=== PATIENT | female | born 1960 | race Caucasian/White ===

== ENCOUNTER 2017-07-16 13:14 | Inpatient (IN) | payer MEDICAID ==
[~2017-07-16] VITALS: Ht 165.1 cm; Wt 161.0 kg
--- NOTE | ~2017-07-16 | WRIGHTHP ---
[place], [place] PATIENT HISTORY AND PHYSICAL EXAM [facility]: [id number] UNIT #: [id number] ROOM: 317 DOCTOR: JAZMINE LEBRON MD BIRTHDATE: [birth year] DOS: 07/17/2017 INITIAL PSYCHIATRIC EVALUATION CHIEF COMPLAINT: "I am just so depressed, I was going to kill myself." HISTORY OF PRESENT ILLNESS: This is a 57-year-old white female with a lengthy medical history who resides at [facility] in the [facility]. The patient has voiced increasing depression over the last several weeks, culminating with a recent increase in suicidal ideation with a plan to wrap her oxygen cord around her neck until she suffocates herself. The patient has had at least 3 previous suicide attempts each resulting in hospitalization. 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 The patient also reports to having fleeting visual hallucinations and sees a dark figure at times in the rodríguez. The patient reports multiple psychiatric admissions to [place] and also 2 hospitals in [place] and elsewhere. She is admitted now to rule out any organic factors to attempt to stabilize on medication, to engage in individual and lowe milieu activity and then determine the least restrictive environment to which she can be discharged. PAST MEDICAL HISTORY: Remarkable for coronary artery disease, congestive heart failure, gastritis, GERD, hyperlipidemia, hypertension, hypothyroidism, seizure disorder, and a history of peptic ulcer disease. SOCIAL HISTORY: The patient is a former smoker and she had smoked approximately 1 pack per day for about 4-1/2 years. She does not use illicit drugs or drink alcohol. MENTAL STATUS: Upon admission, the patient is alert and oriented times 3. Mood does seem to be rather depressed with anxious overtones. She endorses significant neurovegetative symptoms with poor sleep and appetite, anergia, anhedonia, hopeless, helpless feelings, crying spells and positive suicidal thoughts with a plan. The patient does not have any overt hypomania or shirlye. There is no overt psychosis noted. Memory for the most part is intact. DIAGNOSIS: Major depression, recurrent, severe, rule out bipolar type 2. PLAN: I will go ahead and discontinue her Effexor in lieu of Pristiq 50 mg in the morning. I will discontinue her Klonopin to simplify her medication regimen. Her vitamin D level upon admission is low at 10.4, so I will augment with vitamin D replacement 50,000 international units weekly. I will obtain a PT and OT evaluation to determine what if any intervention she requires and also consult Dr. Rick regarding competency as she currently has a power of trust and estates attorney in place who has been making informed decisions for the patient and I am uncertain at this point, if that is the correct process at this time. We will engage her in individual and lowe milieu activity, returning then to the least restrictive environment when stable. [place], [place] PATIENT HISTORY AND PHYSICAL EXAM NAME: HU[facility] MILLER [facility] [id number] UNIT #: [id number] ROOM: [facility] DOCTOR: JAZMINE LEBRON MD BIRTHDATE: [birth year] JAZMINE LEBRON MD CM:HISPHYS:PATIENT HISTORY AND PHYSICAL EXAMINATION [id number] JAZMINE LEBRON MD 07/17/17 1205 interface
--- NOTE | ~2017-07-16 | PR ---
[place], [place] PROGRESS NOTE NAME: HUMA MILLER UNIT #: [id number] ROOM: 317 DOCTOR: JAZMINE LEBRON MD BIRTHDATE: [birth year] DOS: 07/20/2017 CHIEF COMPLAINT: "I am still hurting, but I think I feel a little better." SUMMARY OF THE VISIT: The patient was interviewed in the dining area. She reported to me that she is in a great deal of pain, especially her knees. Mood clarke, she does feel that the current medication changes have helped a little bit, but she still remains depressed and overwhelmed. She is tolerating the current medication regimen well and notes no side effects. MENTAL STATUS: She is alert and oriented to person, place and time. Mood does seem to be fairly euthymic and improving. Affect is also more appropriate. There is no shirley or hypomania. There are no gross psychosis. Short, intermediate, and long-term memory are intact. PLAN: I will increase Pristiq from 50 to 100 mg in the morning, hoping to improve her mood. I will also increase Latuda from 40 to 60 mg at bedtime to further stabilize her mood and augment the effectiveness of the antidepressant. I will order Zostrix high potency cream three times daily to see if we can impact positively on pain control without using further opiate analgesia. Engage in individual and lowe milieu activity, returning to the least restrictive environment when psychiatrically stable. JAZMINE LEBRON MD CM:PNTRANS [id number] JAZMINE LEBRON MD 07/20/17 1013 interface
--- NOTE | ~2017-07-16 | PR ---
[place], [place] PROGRESS NOTE NAME: [id number] UNIT #: [id number] ROOM: 317 DOCTOR: ALFREDO MCWILLIAMS DO BIRTHDATE: [birth year] DOS: 07/21/2017 CHIEF COMPLAINT: "Please do not give me that cream with pepper, it goncalves." SUMMARY OF VISIT: The patient is a 57-year-old female who was admitted to the [facility] from the [facility] in [place], [place], status post suicidal ideation with plan, currently on hospital day #5 with improved mood. Today, the patient was interviewed in the quiet room. She was engaged in therapy at that time. She reported having a burning reaction to the Zostrix cream. We informed her that we would discontinue this cream. The patient did not wear her BiPAP last night per nursing. The patient was complaining of burning leg pain last night. She did not voice this concern this morning. The patient was informed with discharge plan for disposition tomorrow. The patient was in agreement with plan. The patient is currently being observed for fall precautions, no hallucinations were noted. No thoughts of self-harm were verbalized by patient. MENTAL STATUS EXAMINATION: The patient is alert and oriented to person, place and time. Mood does appear to be trending towards euthymia. Affect is more appropriate. There are no signs of thoughts of self-harm or harm towards others. The patient's short-term memory appears to be intact. There are no signs of shirley or hypomania. PLAN: 1. We have discontinued the Zostrix cream secondary to rash and burning to the application site. 2. No other changes to be made to the psychotropic regimen at this time as the patient is tolerating regimen well. 3. The patient has been started with fosfomycin for urinary tract infection. This is being managed by the internal medicine hospitalist team. 4. Disposition, the patient to be discharged tomorrow back to [facility]. We will continue to engage the patient in individual and lowe milieu activity, returning to the least restrictive environment when psychiatrically stable. Alfredo Mcwilliams DO [place], [place] PROGRESS NOTE NAME: HUMA MILLER UNIT #: [id number] ROOM: 317 DOCTOR: ALFREDO MCWILLIAMS DO BIRTHDATE: [birth year] JAZMINE LEBRON MD CM:BENNIE [id number] ALFREDO MCWILLIAMS DO 07/21/17 1345 interface
--- NOTE | ~2017-07-16 | DS ---
[place], [place] DISCHARGE SUMMARY [id number] UNIT #: [id number] ROOM: 317 DOCTOR: JAZMINE LEBRON MD BIRTHDATE: [birth year] DOS: 07/22/2017 CHIEF COMPLAINT: "I am just so depressed, I was going to kill myself." HISTORY OF PRESENT ILLNESS: This is a 57-year-old white female with a lengthy medical and psychiatric history. She resides at [facility] in [place], [place]. The patient has voiced increasing depression over the last several weeks prior to this admission, culminating in a recent voicing of suicidal ideation with a plan to wrap her oxygen cord around her neck until she suffocates herself. The patient has had at least 3 previous suicide attempts, resulting in hospitalizations. She reports that she has felt herself getting deeper into the depression over the last several weeks during which time, she has experienced poor sleep with difficulty falling asleep, sleep continuity disturbance, hide salter awakening, anergia, anhedonia, hopeless, helpless feelings, crying spells, and inability to cope. She also reports fleeting visual hallucinations and often sees a dark figure at times in the rodríguez. She reports multiple psychiatric admissions to [facility] and 2 hospitals in the [facility]. She is admitted now to the [facility] to rule out possible organic factors, to engage in individual and lowe milieu activities and to stabilize on medication, returning to the least restrictive environment when psychiatrically stable. PAST MEDICAL HISTORY: Remarkable for coronary artery disease, congestive heart failure, gastritis, GERD, hyperlipidemia, hypertension, hypothyroidism, seizure disorder, and peptic ulcer disease. SOCIAL HISTORY: She is a former cigarette smoker, smoking 1 pack per day for about 4-1/2 years. She does not drink alcohol nor does she use any illicit drugs. STRENGTHS: She has good verbal skills, a very good sense of humor and is very engaging. SUMMARY OF HOSPITAL COURSE: The patient was admitted to the unit where her Effexor was discontinued in lieu of Pristiq 50 mg in the morning. Pristiq was utilized as a drug with a more favorable side effect profile. It was increased to its maximum dose of 100 mg in the morning with good results. Her Klonopin was discontinued to simplify her medication regimen. Upon admission, her vitamin D level was found to be low at 10.4, so she was augmented with vitamin D 50,000 international units weekly. Latuda 40 mg at bedtime was added as a mood stabilizer to help augment the effectiveness of the Pristiq and also to stabilize her mood, improve sleep and appetite. She tolerated the Latuda well with excellent results and, in fact, it dramatically improved her mood. Dose was gradually increased then from 40 to 60 mg at bedtime with good results. The patient improved dramatically with this combination of medicine becoming much more interactive in group and individual therapy. She voiced positive plans for the future and was very anxious to return back to [facility]. MENTAL STATUS AT DISCHARGE: The patient is alert and oriented to person, place and very approximate to time. Mood was strongly trending towards euthymia. [place], [place] DISCHARGE SUMMARY NAME: HUMA MILLER UNIT #: [id number] ROOM: [facility] DOCTOR: JAZMINE LEBRON MD BIRTHDATE: [birth year] Affect was more appropriate. There is no shirley or hypomania. There were no overt auditory or visual hallucinations. No delusions, no paranoia. Memory for the most part is intact. DIAGNOSIS: Major depression, recurrent, severe. PLAN: The patient is to return to [facility]. Her prescriptions have been e-scribed to [facility]. Medically and psychiatrically she is stable. Her biopsychosocial needs are adequately being met by the facility, by Marcia Cui, her nurse practitioner and by the community at large. JAZMINE LEBRON MD CM:DISCHARG [id number] JAZMINE LEBRON MD 07/22/17 1214 interface
--- NOTE | ~2017-07-16 | PR ---
[place], [place] PROGRESS NOTE NAME: HUMA MILLER UNIT #: [id number] ROOM: 317 DOCTOR: LUIS FRAGOSO MD BIRTHDATE: [birth year] DOS: 07/19/2017 PSYCHIATRIC PROGRESS NOTE SUBJECTIVE: The patient was seen and spoke with the nursing staff. Per nursing staff, the patient is still very demanding, irritable and angry at times. Compliant with her medication. The patient was in the day area, sitting on the chair. She said that she preferred not to talk with me today. When I asked her why she does not want to talk with me, she did not answer any of my questions. MENTAL STATUS EXAMINATION: Irritable and angry, described her mood as "I don't know." Affect was labile. Thought process goal directed. No flight of ideas or loosening of association. She denied auditory or visual hallucination. No delusion or paranoia noted. She reported fleeting suicidal ideation, but no intent or plan. Denied any homicidal ideation, intent or plan. Insight and judgment poor to fair. PLAN: 1. Continue current medication and care. 2. Encourage activity in groups. 3. Continue 1:1 therapy, psychoeducation and coping skill. 4. Final medication management and discharge planned by the regular team. LUIS FRAGOSO MD CM:PNTRANS 15 14 LUIS FRAGOSO MD 07/19/172112 interface
--- NOTE | ~2017-07-16 | CON ---
[place], [place] REPORT OF CONSULTATION NAME: HUMA MILLER UNIT #: [id number] ROOM: 317 DOCTOR: YOEL AGUILERA ED.D (SEEMA) BIRTHDATE: [birth year] DOS: 07/20/2017 HISTORY OF PRESENT ILLNESS: The patient is a 57-year-old female referred by Dr. Lebron for competency evaluation. At the present time, she is on the [facility] at [facility]. She states that she is single and she does have one daughter. She also has a sister, Ronna Cabrera who is her healthcare power of patent prosecution attorney. Apparently, she has healthcare power of patent prosecution attorney, living will and a durable power of patent prosecution attorney. This patient states that she has been on disability. She presently resides at [facility] in [place], [place]. She denies any drug or alcohol use or abuse. She states that she is presently in [facility] and that it is 07/20/2017. She had no difficulty whatsoever with her memory. She does not appear to be exhibiting any delusional thoughts at this time. She states that she has attempted suicide on several different occasions and has had multiple psychiatric admissions. At the correction, she threatened to kill herself by strangling herself with her oxygen cord. Her medical history is pertinent for GERD, coronary artery disease, congestive heart failure, hypertension, hypothyroidism, seizure disorder, peptic ulcer disease, and major depressive disorder, severe. Her medications include Latuda, Pristiq, Synthroid, Lamictal, vitamin D, Pepcid, Topamax, lisinopril, Lasix and atorvastatin. This patient adamantly denies any suicidal ideation or plan at this time. She states she is feeling much better now that she has been getting treatment and hopes that she can continue to have followup by Dr. Lebron in the future at the [facility] in [place], [place]. It is clear that she is competent and can make informed healthcare decisions. DIAGNOSIS: Major depressive disorder - recurrent - severe. RECOMMENDATIONS: In my opinion, this patient is competent to make informed healthcare decisions. Thank you very much for this consultation. YOEL AGUILERA ED.D CM:CONSTR:REPORT OF CONSULTATION 45 07/20/17 2343 interface JAZMINE LEBRON MD
--- NOTE | ~2017-07-16 | PR ---
[place], [place] PROGRESS NOTE NAME: HUMA MILLER UNIT #: [id number] ROOM: 317 DOCTOR: LUIS FRAGOSO MD BIRTHDATE: [birth year] DOS: 07/18/2017 SUBJECTIVE: The patient seen and I spoke with the staff. Per staff, the patient was tearful, was refusing her medication last night but took this morning, irritable and angry at times, hard to redirect. The patient was pleasant and cooperative. She was sitting in the day area. She reports being depressed and down. She talked about fleeting suicidal ideation, but mentioned that she will ask for help. She denied any side effect from medication. MENTAL STATUS EXAMINATION: Pleasant, cooperative. Described her mood as "down." Affect was flat, constricted. Thought process goal directed. No flight of ideas or loosening of association. She denied auditory or visual hallucination. No delusion or paranoia noted. She had fleeting suicidal ideation, but no intent or plan. Denied any homicidal ideation, intent or plan. PLAN: 1. Continue current medications and care. 2. Increase activity in groups. 3. Continue 1:1 therapy, psychoeducation, and coping skill. LUIS FRAGOSO MD CM:PNTRANS 09 [id number] LUIS FRAGOSO MD 07/19/17 0039 interface
[2017-07-16] MEDS ORDERED: ASPERCREME 1035.4 GM T (13:25)
[2017-07-16] MEDS ORDERED: ASPERCREME HE70.8 GM T (13:28)
[2017-07-16] MEDS ORDERED: ASPERCREME177.4 ML T (13:30)
[2017-07-16] MEDS ORDERED: ASPIRIN ADULT L81 M1 PO (13:31)
[2017-07-16] MEDS ORDERED: AZELASTINE137 MCG/0. NAS (13:33)
[2017-07-16] MEDS ORDERED: BENADRYL ALLERG25 M5 PO (13:34)
[2017-07-16] MEDS ORDERED: MENOPAUSE SUPPO20 MG PO (13:35)
[2017-07-16] MEDS ORDERED: CEPACOL SORETH1 EACH PO (13:36)
[2017-07-16] MEDS ORDERED: EFFEXOR XR150 MG PO (13:37)
[2017-07-16] MEDS ORDERED: FLONASE ALLERG9.9 ML NAS (13:38)
[2017-07-16] MEDS ORDERED: HYDROCODON-ACE1 EACH PO (13:39)
[2017-07-16] MEDS ORDERED: ALA-CORT28.4 GM T (13:41)
[2017-07-16] MEDS ORDERED: KLONOPIN0.5 MG PO (13:42)
[2017-07-16] MEDS ORDERED: Lac-Hydrin 12%340 GM T (13:44)
[2017-07-16] MEDS ORDERED: CONSTULOSE10 GM/151 PO (13:45)
[2017-07-16] MEDS ORDERED: LAMICTAL200 MG PO (13:52)
[2017-07-16] MEDS ORDERED: LAMICTAL100 MG PO (13:53)
[2017-07-16] MEDS ORDERED: LASIX20 MG PO (13:54)
[2017-07-16] MEDS ORDERED: LIPITOR10 MG PO (13:55)
[2017-07-16] MEDS ORDERED: LIQUITEARS 15 M15 ML OP ×2 (13:56)
[2017-07-16] MEDS ORDERED: ZESTRIL10 MG PO (13:57)
[2017-07-16] MEDS ORDERED: MIRALAX17 GM PO (13:58)
[2017-07-16] MEDS ORDERED: PROTONIX40 MG PO (13:59)
[2017-07-16] MEDS ORDERED: SEROQUEL50 MG PO (14:02)
[2017-07-16] MEDS ORDERED: HYDROCIL INSTA1 EACH PO (14:02)
[2017-07-16] MEDS ORDERED: SEROQUEL200 MG PO (14:03)
[2017-07-16] MEDS ORDERED: ANTI-GAS ULTRA180 MG PO (14:04)
[2017-07-16] MEDS ORDERED: Synthroid,Lev150 MCG PO (14:05)
[2017-07-16] MEDS ORDERED: TOPAMAX100 M1 PO (14:05)
[2017-07-16] MEDS ORDERED: TOPAMAX50 MG PO (14:09)
[2017-07-16] MEDS ORDERED: VENLAFAXINE75 M1 PO (14:13)
[2017-07-16] MEDS ORDERED: PROVENTIL HFA6.7 GM INH (14:15)
[2017-07-16] MEDS ORDERED: VITAMIN E400 UNI1 PO (14:16)
[2017-07-16] MEDS ORDERED: ZANTAC 150150 MG PO (14:17)
[2017-07-16] MEDS ORDERED: ZOFRAN4 MG PO (14:29)
[2017-07-16] MEDS ORDERED: DOCUSATE SOD100 MG PO (14:37)
[2017-07-16 17:12] VITALS: BP 125/60
[2017-07-16 19:13] VITALS: BP 125/60
[2017-07-16 20:00] VITALS: BP 125/60
[2017-07-17 07:00] LABS: BASO # 0.1 10*3/uL (0.0-0.1); EOS # 0.3 10*3/uL (0.0-0.4); EOS % 2.5 % (1.0-4.0); HEMATOCRIT 42.6 % (37.0-47.0); HEMOGLOBIN 13.1 g/dl (12.0-16.0); LYMPH # 1.9 10*3/uL (1.3-4.4); LYMPH % 16.5 % (27.0-41.0); MEAN CELL VOLUME 91.8 fl (81.0-99.0); MEAN CORPUSCULAR HGB 28.2 pg (27.0-31.0); MEAN CORPUSCULAR HGB CONC 30.8 g/dl (33.0-37.0); MEAN PLATELET VOLUME 10.3 fl (9.6-12.3); MONO # 0.9 10*3/uL (0.1-1.0); MONO % 7.5 % (3.0-9.0); NEUT # 8.1 10*3/uL (2.3-7.9); NEUT % 71.1 % (47.0-73.0); PLATELET COUNT AUTOMATED 263 10*3/uL (130-400); RED BLOOD COUNT 4.64 10*6/uL (4.10-5.10); RED CELL DISTRI WIDTH 13.9 % (0-14.5); WHITE BLOOD COUNT 11.4 10*3/uL (4.8-10.8)
[2017-07-17 07:37] LABS: ALBUMIN 3.6 gm/dl (3.1-4.5); ALKALINE PHOSPHATASE 144 U/L (45-117); BUN 11 mg/dl (7-24); CHLORIDE 104 mmol/L (98-107); CHOLESTEROL 148 mg/dL (<200); CREATININE 0.83 mg/dL (0.55-1.02); HDL CHOLESTEROL 48 mg/dl (40-60); LDL CHOLESTEROL 83 mg/dL (9-159); POTASSIUM 4.2 mmol/L (3.5-5.1); SGOT/AST 13 IU/L (3-35); SGPT/ALT 22 U/L (12-78); SODIUM 141 mmol/L (136-145); TOTAL PROTEIN 7.9 gm/dL (6.4-8.2); TRIGLYCERIDES 83 mg/dl (<150); VLDL CHOLESTEROL 17 mg/dL (6-40)
[2017-07-17 08:14] LABS: VITAMIN D, 25-HYDROXY 10.4 ng/mL (30-100)
[2017-07-17 08:17] VITALS: BP 128/68
[2017-07-17 20:27] VITALS: BP 120/75
[2017-07-18 08:01] VITALS: BP 115/73
[2017-07-18 20:00] VITALS: BP 120/62
[2017-07-19 08:52] VITALS: BP 120/64
[2017-07-19 11:43] LABS: BILIRUBIN NEGATIVE (NEGATIVE); BLOOD TRACE-LYSED (NEGATIVE); CLARITY CLEAR (CLEAR); COLOR YELLOW (YELLOW); GLUCOSE NEGATIVE (NEGATIVE); KETONE NEGATIVE (NEGATIVE); LEUKO ESTERASE TRACE (NEGATIVE); NITRITE NEGATIVE (NEGATIVE); SPECIFIC GRAVITY 1.015 (1.005-1.030)
[2017-07-19 11:54] LABS: BACTERIA 2+
[2017-07-19 20:29] VITALS: BP 120/60
[2017-07-20 07:34] VITALS: BP 115/74
[2017-07-20 20:00] VITALS: BP 126/72
[2017-07-21 08:56] VITALS: BP 130/76
[2017-07-21 19:15] VITALS: BP 130/72
[2017-07-22] MEDS ORDERED: HYDROCODONE-AC1 EAC1 PO (08:04)
[2017-07-22] MEDS ORDERED: LAMOTRIGINE100 MG PO ×2 (11:09)
[2017-07-22] MEDS ORDERED: PRISTIQ50 MG PO (11:09)
[2017-07-22] MEDS ORDERED: LATU60TA PO (11:09)
[2017-07-22] MEDS ORDERED: TOPAMAX100 M1 PO ×2 (11:09)
== END 2017-07-22 15:00 | DRG 885 ==
LOC: 3N 13:14
PROVIDERS: Psychiatry & Neurology Psychiatry
DX: F31.4 Bipolar disorder, current episode depressed, severe, without psychotic features (principal); I50.9 Heart failure, unspecified; R45.851 Suicidal ideations; I11.0 Hypertensive heart disease with heart failure; N39.0 Urinary tract infection, site not specified; G89.29 Other chronic pain; G40.909 Epilepsy, unspecified, not intractable, without status epilepticus; J44.9 Chronic obstructive pulmonary disease, unspecified; I25.10 Atherosclerotic heart disease of native coronary artery without angina pectoris; F60.3 Borderline personality disorder; K21.9 Gastro-esophageal reflux disease without esophagitis; E78.5 Hyperlipidemia, unspecified; E03.9 Hypothyroidism, unspecified; Z99.81 Dependence on supplemental oxygen; Z87.11 Personal history of peptic ulcer disease; Z90.49 Acquired absence of other specified parts of digestive tract; Z87.891 Personal history of nicotine dependence; Z79.82 Long term (current) use of aspirin; Z79.899 Other long term (current) drug therapy

== ENCOUNTER 2017-09-27 04:18 | Inpatient (IN) | payer MEDICAID ==
[~2017-09-27] VITALS: Ht 165.1 cm; Wt 161.0 kg
--- NOTE | ~2017-09-27 | EKG ---
[place], [place] ELECTROCARDIOGRAM REPORT NAME: HUMA MILLER UNIT #: [id number] ROOM: 315 DOCTOR: JET DRAFT REPORT BIRTHDATE: [birth year] [facility] Test Date: 2017-09-27 Test Time: 16:06:19 Pat Name: HUMA MILLER Department: Room: [facility] 1 Gender: F Lease Operator: PRASHANTH : 1960 Requested By: ISAAC COBB Order Number: [id number] Reading MD: Wallace Sargent MD Measurements Intervals [place] Rate: 71 P: 27 [place]: 182 QRS: -17 QRSD: 126 T: 225 QT: 383 QTc: 417 Interpretive Statements Sinus rhythm Nonspecific IVCD Nonspecific ST-T changes Electronically Signed On 09-28-2017 7:55:23 PDT by Wallace Sargent MD CM:EKGRPT:ELECTROCARDIOGRAM REPORT [id number] ISAAC CHAUDHARY DRAFT REPORT ISAAC COBB
--- NOTE | ~2017-09-27 | WRIGHTHP ---
[place], [place] PATIENT HISTORY AND PHYSICAL EXAM NAME: HUMA MILLER UNIT #: [id number] ROOM: 315 DOCTOR: JAZMINE LEBRON MD BIRTHDATE: [birth year] DOS: 09/27/2017 INITIAL PSYCHIATRIC EVALUATION CHIEF COMPLAINT: "I just can't go on anymore, I want to ." HISTORY OF PRESENT ILLNESS: This is a 57-year-old white female known to me from her previous stay here. She resides currently at [facility] in the [facility]. The patient reported to staff there that she was going to attempt to hang herself with her oxygen cord and did not want to go on any further. She is very depressed and despondent and reports not sleeping well, eating well and just feeling at wits end. She was sent to [facility] ER to be evaluated where they did feel that she represented substantial risk of harm to self and she was later then to transferred here for continuity of care. PAST MEDICAL HISTORY: Remarkable for borderline personality disorder, coronary artery disease, congestive heart failure, chronic pain, COPD, gastritis, GERD, hyperlipidemia, hypertension, hypothyroidism, seizure disorder. SOCIAL HISTORY: The patient socially is a former cigarette smoker, having stopped many years ago. She does not drink alcohol, nor does she use illicit drugs. STRENGTHS: Good verbal skills, ambulatory. WEAKNESSES: Chronic long-term psychiatric issues with poor coping skills. MENTAL STATUS: She is alert and oriented. Mood does seem to be depressed. Affect is flat, blunted, and constricted. There is no hypomania or shirley. There are no auditory or visual hallucinations, delusions or paranoia. Short-term memory has mild gaps, otherwise she is intact. DIAGNOSIS: Major depression, recurrent, severe; dysthymic disorder and borderline personality disorder. PLAN: I will maintain her on her Latuda, Lamictal and Topamax. I will add Trintellix 10 mg a day to combat the depression, engage in individual and lowe milieu activity, returning to the least restrictive environment when psychiatrically stable. [place], [place] PATIENT HISTORY AND PHYSICAL EXAM NAME: HUMA MILLER UNIT #: [id number] ROOM: 315 DOCTOR: JAZMINE LEBRON MD BIRTHDATE: [birth year] JAZMINE LEBRON MD CM:CORINNAS:PATIENT HISTORY AND PHYSICAL EXAMINATION 1025 JAZMINE LEBRON MD 09/27/17 1226 interface
[~2017-09-27 04:18] MED LIST: ALA-CORT28.4 GM T; ANTI-GAS ULTRA180 MG PO; ASPERCREME 1035.4 GM T; ASPERCREME HE70.8 GM T; ASPERCREME177.4 ML T; ASPIRIN ADULT L81 M1 PO; AZELASTINE137 MCG/0. NAS; BENADRYL ALLERG25 M5 PO; CEPACOL SORETH1 EACH PO; CONSTULOSE10 GM/151 PO; DOCUSATE SOD100 MG PO; EFFEXOR XR150 MG PO; FLONASE ALLERG9.9 ML NAS; HYDROCIL INSTA1 EACH PO; HYDROCODON-ACE1 EACH PO; HYDROCODONE-AC1 EAC1 PO; KLONOPIN0.5 MG PO; LAMICTAL100 MG PO; LAMICTAL200 MG PO; LAMOTRIGINE100 MG PO; LASIX20 MG PO; LATU60TA PO; LIPITOR10 MG PO; LIQUITEARS 15 M15 ML OP; Lac-Hydrin 12%340 GM T; MENOPAUSE SUPPO20 MG PO; MIRALAX17 GM PO; PRISTIQ50 MG PO; PROTONIX40 MG PO; PROVENTIL HFA6.7 GM INH; SEROQUEL200 MG PO; SEROQUEL50 MG PO; Synthroid,Lev150 MCG PO; TOPAMAX100 M1 PO; TOPAMAX50 MG PO; VENLAFAXINE75 M1 PO; VITAMIN E400 UNI1 PO; ZANTAC 150150 MG PO; ZESTRIL10 MG PO; ZOFRAN4 MG PO
[2017-09-27] MEDS ORDERED: ARTIFICIAL TEAR15 M1 OU (05:05)
[2017-09-27] MEDS ORDERED: AZELASTINE137 MCG/0. NAS (05:08)
[2017-09-27] MEDS ORDERED: PEPCID20 MG PO (05:09)
[2017-09-27] MEDS ORDERED: MULTIVITAMINS1 EAC5 PO (05:10)
[2017-09-27] MEDS ORDERED: PHAZYME180 MG PO (05:11)
[2017-09-27] MEDS ORDERED: PROTONIX40 MG PO (05:12)
[2017-09-27] MEDS ORDERED: METAMUCIL PACK3.4 GM PO (05:13)
[2017-09-27] MEDS ORDERED: LATU80TA PO (05:14)
[2017-09-27] MEDS ORDERED: ATIVAN0.5 MG PO (05:15)
[2017-09-27] MEDS ORDERED: FLONASE ALLERG9.9 ML NAS (05:16)
[2017-09-27] MEDS ORDERED: BENADRYL25 M2 PO (05:19)
[2017-09-27] MEDS ORDERED: KETOCONAZOLE S120 M1 T (05:20)
[2017-09-27] MEDS ORDERED: VITAMIN A & D56.7 GM T (05:22)
[2017-09-27] MEDS ORDERED: Lac-Hydrin 12%340 GM T (05:24)
[2017-09-27] MEDS ORDERED: ASPERCREME76.5 GM T (05:25)
[2017-09-27] MEDS ORDERED: CORTISONE28 GM T (05:26)
[2017-09-27] MEDS ORDERED: TUMS200 MG PO (05:27)
[2017-09-27 07:42] VITALS: BP 106/70
[2017-09-27 10:04] LABS: BASO # 0.1 10*3/uL (0.0-0.1); BASO % 0.6 % (0.0-1.0); EOS # 0.2 10*3/uL (0.0-0.4); EOS % 1.9 % (1.0-4.0); HEMATOCRIT 39.8 % (37.0-47.0); LYMPH # 1.4 10*3/uL (1.3-4.4); LYMPH % 17.4 % (27.0-41.0); MEAN CELL VOLUME 94.5 fl (81.0-99.0); MEAN CORPUSCULAR HGB 28.5 pg (27.0-31.0); MEAN CORPUSCULAR HGB CONC 30.2 g/dl (33.0-37.0); MEAN PLATELET VOLUME 10.3 fl (9.6-12.3); MONO # 0.6 10*3/uL (0.1-1.0); MONO % 7.8 % (3.0-9.0); NEUT # 5.8 10*3/uL (2.3-7.9); NEUT % 71.4 % (47.0-73.0); PLATELET COUNT AUTOMATED 226 10*3/uL (130-400); RED BLOOD COUNT 4.21 10*6/uL (4.10-5.10); WHITE BLOOD COUNT 8.1 10*3/uL (4.8-10.8)
[2017-09-27 10:33] LABS: ALBUMIN 3.1 gm/dl (3.1-4.5); ALKALINE PHOSPHATASE 117 U/L (45-117); BUN 11 mg/dl (7-24); CHLORIDE 107 mmol/L (98-107); CHOLESTEROL 104 mg/dL (<200); CREATININE 0.83 mg/dL (0.55-1.02); POTASSIUM 3.9 mmol/L (3.5-5.1); SGOT/AST 6 IU/L (3-35); SGPT/ALT 17 U/L (12-78); SODIUM 141 mmol/L (136-145); TOTAL PROTEIN 7.1 gm/dL (6.4-8.2); TRIGLYCERIDES 44 mg/dl (<150); VLDL CHOLESTEROL 9 mg/dL (6-40)
[2017-09-27 10:40] LABS: HDL CHOLESTEROL 51 mg/dl (40-60); LDL CHOLESTEROL 44 mg/dL (9-159); THYROID STIM HORMONE (HS) 0.576 uIU/ml (0.358-4.75)
[2017-09-27 11:31] LABS: VITAMIN D, 25-HYDROXY 14.8 ng/mL (30-100)
[2017-09-27] MEDS ORDERED: TRINTELLIX10 MG PO (16:44)
[2017-09-27] MEDS ORDERED: LAMICTAL200 MG PO (18:11)
== END 2017-09-27 17:15 | disposition short-term general hospital (02) | DRG 885 ==
LOC: 3N 04:18
PROVIDERS: Psychiatry & Neurology Psychiatry
DX: F33.9 Major depressive disorder, recurrent, unspecified (principal); I50.9 Heart failure, unspecified; Z99.81 Dependence on supplemental oxygen; I11.0 Hypertensive heart disease with heart failure; F34.1 Dysthymic disorder; I25.10 Atherosclerotic heart disease of native coronary artery without angina pectoris; G89.29 Other chronic pain; K21.9 Gastro-esophageal reflux disease without esophagitis; E78.5 Hyperlipidemia, unspecified; E03.9 Hypothyroidism, unspecified; J41.0 Simple chronic bronchitis; Z90.49 Acquired absence of other specified parts of digestive tract; Z87.891 Personal history of nicotine dependence; Z79.899 Other long term (current) drug therapy

== ENCOUNTER 2017-09-27 16:39 | Inpatient (IN) | payer MEDICAID ==
[~2017-09-27] VITALS: Ht 165.1 cm; Wt 158.9 kg
--- NOTE | ~2017-09-27 | CON ---
[place], [place] REPORT OF CONSULTATION NAME: [facility]ILLER [id number] UNIT #: [id number] ROOM: 522 DOCTOR: EDDIE MCWILLIAMS MD BIRTHDATE: [birth year] DOS: 09/28/2017 CARDIOLOGY CONSULTATION CHIEF COMPLAINT: Chest pain. HISTORY OF PRESENT ILLNESS: The patient is a 57-year-old woman who is typically followed by horticultural agent at [facility] and specifically by ____. She tells me that she does have a history of heart failure and has been told that she has an enlarged heart. She denies any history of myocardial infarction or stroke. She does, however, have a history of hypertension and hyperlipidemia. She also has several psychiatric diagnoses including major depressive disorder, poor coping skills and suicidal ideation. She was threatening to hang herself with her IV tubing. She was admitted to the Behavioral Health Unit at [facility]. Where she began complaining of chest pain. She was therefore transferred to the inpatient unit and a Cardiology consultation was requested. PAST MEDICAL HISTORY: Includes: 1. Major depression disorder. 2. Hypertension. 3. Hyperlipidemia. 4. Gastroesophageal reflux disease. 5. History of cigarette abuse in the past, complicated by obstructive lung disease. 6. History of seizure disorder. 7. Oxygen dependence. 8. Status post cholecystectomy. MEDICATIONS: Prior to admission included albuterol by inhaler p.r.n. Azelastine nasal spray daily, fluticasone nasal spray daily, liquid tears every 4 hours p.r.n., aspirin 81 mg per day, atorvastatin 10 mg per day at bedtime, Tums two tablets q. 6 hours, Benadryl 25 mg q. 6 hours p.r.n., famotidine 20 mg at bedtime, furosemide 20 mg per day, hydrocodone with acetaminophen q. 12 hours p.r.n. Lamictal 200 mg twice a day and 100 mg in the middle of the afternoon. Levothyroxine 150 mcg daily, lisinopril 10 mg daily, Latuda 80 mg at bedtime, multivitamin daily, pantoprazole 40 mg daily, Metamucil daily, simethicone b.i.d., Topamax 50 mg daily and 100 mg at bedtime. Trintellix 10 mg daily, ammonium lactate lotion as needed for dry skin. Hydrocortisone to the skin b.i.d. Ketoconazole shampoo. Lidocaine cream b.i.d. ALLERGIES: The patient has no known drug allergies. FAMILY HISTORY: The patient's father from a motor vehicle accident in his 40s. Her mother from motor vehicle accident in her 30s. Apparently, her sister is her power of attorney lawyer. REVIEW OF SYSTEMS: The patient denies diplopia or loss of vision. She denies focal weakness, but she is generally weak. She denies fevers, chills or sweats. She does complain of dyspnea with minimal exertion and dyspnea when she lies [place], [place] REPORT OF CONSULTATION NAME: HUMA MILLER UNIT #: [id number] ROOM: 522 DOCTOR: EDDIE MCWILLIAMS MD BIRTHDATE: [birth year] down. She denies hemoptysis or hematemesis. She denies any focal weakness. She denies nausea or vomiting. She denies change in bowel or bladder habits. She denies any blood in her stools or urine. She denies any chest pain or abdominal pain present, but she did have chest pain 2 days ago. She denies heat or cold intolerance. She denies any peripheral edema. She denies any skin rashes. Remainder review of systems is negative except as noted above. SOCIAL HISTORY: The patient is a chronic [facility] resident. She was a smoker, but quit in 2011 and does not consume any alcohol. PHYSICAL EXAMINATION: GENERAL: The patient is an obese white female who is awake, alert and oriented. When I walked to the room, she was very upset and crying. She stated that she could not possibly lay down for the stress test and was afraid we would try to force her. I assured her that she was in total control that situation and that we would not force her to do anything which she did not want to do. She calmed down after that. HEENT: Normocephalic and atraumatic. Extraocular muscles are intact. Sclerae are clear. Pupils equal, round and react to light. The oral mucosa is moist. Tongue is midline. NECK: Supple. She has no jugular distention. Carotids are full. I heard no bruits. She had no neck or supraclavicular masses. LUNGS: Respirations are unlabored. Her chest has decreased breath sounds bilaterally with mild expiratory prolongation bilaterally. She has no wheezes or rales. She has no chest wall tenderness posteriorly. She has no presacral edema or chest wall tenderness. Anterior chest is tender to palpation and does reproduce some of her chest symptoms. CARDIOVASCULAR: Her heart has a regular rhythm. She has a soft S4 gallop, but no S3. The PMI could not be felt. She has no precordial heave, lift or thrill. ABDOMEN: Obese, but otherwise benign, without masses, organomegaly, bruits or tenderness. EXTREMITIES: Her right leg is in a brace. She has lymphedema of her left leg. There is no pitting. Pulses on the left foot are adequate. LABORATORY DATA: Her electrocardiogram showed sinus rhythm with a left bundle branch block. Her chest x-ray showed normal cardiac dimensions. No active infiltrates or evidence of failure. Hemoglobin is 12.3, hematocrit 40.8, 8000 white cells and 221,000 platelets present. Sodium is 143, potassium 4.0, chloride 109, CO2 25, BUN 12, creatinine 0.79. Serial troponin levels are normal. Urinalysis shows no evidence of protein. IMPRESSIONS: 1. Dyspnea and chest discomfort. The patient does have a history of reported heart failure, but shows no signs of heart failure at present. 2. Abnormal electrocardiogram with nonspecific interventricular conduction delay and nonspecific ST and T-wave changes. 3. History of hypertension. 4. Atypical chest pain, which is reproduced by palpation. 5. Severe chronic obstructive pulmonary disease, dependent on oxygen at home. 6. Depression with suicidal ideations. [place], [place] REPORT OF CONSULTATION NAME: HUMA MILLER UNIT #: [id number] ROOM: 522 DOCTOR: EDDIE MCWILLIAMS MD BIRTHDATE: [birth year] PLAN: The patient is refusing any consideration of stress testing. We will review her echocardiogram when it is available. She shows no signs of acute ischemia now and if she has no wall motion abnormalities and normal left ventricular function, we will simply continue to treat her for heart failure with preserved ejection fraction and manage her clinically. Risk factor modification will continue to be important in her care. She must never smoke again and we should treat blood pressure, lipids, etc., as indicated. We thank the hospitalist physicians for asking our advice regarding her care. EDDIE MCWILLIAMS MD CM:CONSTR:REPORT OF CONSULTATION 1057 10/19/17 1437 interface
[~2017-09-27 16:39] MED LIST changes: +ARTIFICIAL TEAR15 M1 OU; +ASPERCREME76.5 GM T; +ATIVAN0.5 MG PO; +BENADRYL25 M2 PO; +CORTISONE28 GM T; +KETOCONAZOLE S120 M1 T; +LATU80TA PO; +METAMUCIL PACK3.4 GM PO; +MULTIVITAMINS1 EAC5 PO; +PEPCID20 MG PO; +PHAZYME180 MG PO; +TUMS200 MG PO; +VITAMIN A & D56.7 GM T
[2017-09-27] MEDS ORDERED: TRINTELLIX10 MG PO (16:44)
[2017-09-27 17:30] VITALS: BP 116/57
[2017-09-27] MEDS ORDERED: LAMICTAL200 MG PO (18:11)
[2017-09-27 19:10] LABS: POTASSIUM 4.6 mmol/L (3.5-5.1)
[2017-09-27 20:00] VITALS: BP 104/54
[2017-09-27 20:27] LABS: BILIRUBIN NEGATIVE (NEGATIVE); BLOOD TRACE-LYSED (NEGATIVE); CLARITY SL CLOUDY (CLEAR); COLOR YELLOW (YELLOW); GLUCOSE NEGATIVE (NEGATIVE); KETONE NEGATIVE (NEGATIVE); LEUKO ESTERASE NEGATIVE (NEGATIVE); NITRITE NEGATIVE (NEGATIVE); PH 8.5 (5.0-9.0)
[2017-09-27 20:34] LABS: BACTERIA 1+; EPITHELIAL CELLS 0-2; WBC 0-2 wbc/hpf (0-5)
[2017-09-28] VITALS: BP 110/51
[2017-09-28 06:19] LABS: BASO # 0.1 10*3/uL (0.0-0.1); BASO % 0.8 % (0.0-1.0); EOS # 0.2 10*3/uL (0.0-0.4); EOS % 2.8 % (1.0-4.0); HEMATOCRIT 40.8 % (37.0-47.0); HEMOGLOBIN 12.3 g/dl (12.0-16.0); LYMPH # 1.6 10*3/uL (1.3-4.4); LYMPH % 19.8 % (27.0-41.0); MEAN CELL VOLUME 94.7 fl (81.0-99.0); MEAN CORPUSCULAR HGB 28.5 pg (27.0-31.0); MEAN CORPUSCULAR HGB CONC 30.1 g/dl (33.0-37.0); MEAN PLATELET VOLUME 10.9 fl (9.6-12.3); MONO # 0.7 10*3/uL (0.1-1.0); MONO % 9.1 % (3.0-9.0); NEUT # 5.3 10*3/uL (2.3-7.9); NEUT % 66.6 % (47.0-73.0); PLATELET COUNT AUTOMATED 221 10*3/uL (130-400); RED BLOOD COUNT 4.31 10*6/uL (4.10-5.10); RED CELL DISTRI WIDTH 13.8 % (0-14.5)
[2017-09-28 06:32] LABS: ALBUMIN 3.1 gm/dl (3.1-4.5); ALKALINE PHOSPHATASE 111 U/L (45-117); BUN 12 mg/dl (7-24); CHLORIDE 109 mmol/L (98-107); CREATININE 0.79 mg/dL (0.55-1.02); PHOSPHOROUS 3.6 mg/dL (2.5-4.9); SGOT/AST 12 IU/L (3-35); SGPT/ALT 17 U/L (12-78); SODIUM 143 mmol/L (136-145)
[2017-09-28 08:00] VITALS: BP 103/54
[2017-09-28 12:00] VITALS: BP 103/46
[2017-09-28 16:00] VITALS: BP 102/61
== END 2017-09-28 18:21 | disposition home health service (06) | DRG 206 ==
LOC: 5E 16:39
PROVIDERS: Student in an Organized Health Care Education/Training Program
DX: M94.0 Chondrocostal junction syndrome [Tietze] (principal); E87.8 Other disorders of electrolyte and fluid balance, not elsewhere classified; I50.22 Chronic systolic (congestive) heart failure; I11.0 Hypertensive heart disease with heart failure; R45.851 Suicidal ideations; F33.9 Major depressive disorder, recurrent, unspecified; I25.119 Atherosclerotic heart disease of native coronary artery with unspecified angina pectoris; R73.9 Hyperglycemia, unspecified; J44.9 Chronic obstructive pulmonary disease, unspecified; K21.9 Gastro-esophageal reflux disease without esophagitis; E03.9 Hypothyroidism, unspecified; F60.3 Borderline personality disorder; G89.29 Other chronic pain; E78.5 Hyperlipidemia, unspecified; K25.9 Gastric ulcer, unspecified as acute or chronic, without hemorrhage or perforation; Z53.29 Procedure and treatment not carried out because of patient's decision for other reasons; G40.909 Epilepsy, unspecified, not intractable, without status epilepticus; Z99.81 Dependence on supplemental oxygen; Z79.899 Other long term (current) drug therapy; Z79.82 Long term (current) use of aspirin; Z87.442 Personal history of urinary calculi; Z90.49 Acquired absence of other specified parts of digestive tract; Z87.891 Personal history of nicotine dependence

== ENCOUNTER 2017-09-28 18:30 | Inpatient (IN) | payer MEDICAID ==
[~2017-09-28] VITALS: Ht 165.1 cm; Wt 158.8 kg
--- NOTE | ~2017-09-28 | PR ---
[place], [place] PROGRESS NOTE NAME: HUMA MILLER UNIT #: [id number] ROOM: 315 DOCTOR: LUIS FRAGOSO MD BIRTHDATE: [birth year] DOS: 10/04/2017 PSYCHIATRIC PROGRESS NOTE SUBJECTIVE: The patient seen and spoke with the staff. Per staff, the patient is doing well. No behavior problems or issues. Medication compliant. The patient was on the day area, little irritable and angry towards me, but says that she is doing well. She reports good sleep and appetite. Denied any side effects from the medication. MENTAL STATUS EXAMINATION: Pleasant and cooperative, but irritable at times. Described her mood as "okay." Affect, mood congruent. Thought process goal directed. No flight of ideas, loosening of association. She denied auditory or visual hallucination. No delusion or paranoia noted. She denied suicidal ideation, intent or plan. She also denied any homicidal ideation, intent or plan. Insight and judgment was poor to fair. PLAN: 1. Continue current medication and care. 2. Encourage activities in groups. 3. Continue 1:1 therapy, psychoeducation and coping skill. LUIS FRAGOSO MD CM:PNTRANS [phone] LUIS FRAGOSO MD 10/05/17 0321 interface
--- NOTE | ~2017-09-28 | PR ---
[place], [place] PROGRESS NOTE [id number] UN[facility] #: [id number] ROOM: 315 DOCTOR: LUIS FRAGOSO MD BIRTHDATE: [birth year] DOS: 10/03/2017 PSYCHIATRIC PROGRESS NOTE SUBJECTIVE: The patient seen and spoke with the staff. Per staff, the patient is very irritable and labile, fixated on different staff. She is taking her medication regularly. The patient was in the day area. When I asked her how she is doing, she said "I prefer not to talk with you." She seems to be not in any distress. She refused to answer any of my question. MENTAL STATUS EXAMINATION: The patient was irritable and angry. She refused to answer any of my question. She seems to be not in any distress. Not able to do full mental status examination as the patient refused to talk with me. PLAN: 1. Continue current medication and care. 2. Encourage activities and groups. 3. Psychoeducation and coping skill. LUIS FRAGOSO MD CM:PNTRANS [phone] LUIS FRAGOSO MD 10/04/17 0340 interface
--- NOTE | ~2017-09-28 | WRIGHTHP ---
[place], [place] PATIENT HISTORY AND PHYSICAL EXAM NAME: HUMA MILLER [facility] #: [id number] UNIT #: [id number] ROOM: 315 DOCTOR: JAZMINE LEBRON MD BIRTHDATE: [birth year] DOS: 09/29/2017 INITIAL PSYCHIATRIC EVALUATION CHIEF COMPLAINT: "I had been feeling so depressed, I wanted to end it all." HISTORY OF PRESENT ILLNESS: This is a 57-year-old white female known to me from her previous admission here to the [facility]. The patient had returned back to [facility] in the [facility] and had been doing relatively well until the last 1-2 weeks prior to her initial readmission here. The patient was readmitted however, did have some cardiac issues and had to be transferred due to chest pain onto the medical floor. While on the medical floor, she continued to complain of persistent depression with the thoughts of wanting to hang herself with her IV tubing. She is now readmitted to the U to rule out any organic factors, to stabilize on medication, to engage in individual and lowe milieu activity with the ultimate plan to return back to [facility]. PAST MEDICAL HISTORY: Remarkable for coronary artery disease, congestive heart failure, chronic pain, COPD, gastritis, GERD, hyperlipidemia, hypertension, hypothyroidism, seizure disorder, and peptic ulcer disease. SOCIAL HISTORY: The patient does not drink alcohol or use illicit drugs. She is a former cigarette smoker, but only smoked a pack of cigarettes for approximately 4-5 years. She lists no known allergies. STRENGTHS: Good verbal skills, ambulatory. WEAKNESSES: Chronic mental health issues and poor coping skills. MENTAL STATUS: She is alert and oriented to person, place, and time. Mood is overwhelmingly depressed. Affect is rather flat, blunted, and constricted with some anxious overtones. There are no symptoms of shirley, hypomania or psychosis. Memory for the most part is fully intact. DIAGNOSES: Major depression, recurrent; dysthymic disorder; and borderline personality disorder. PLAN: I will discontinue her Trintellix in lieu of Cymbalta 30 mg a day and plan to rapidly titrate this upwards. She does complain of multiple pain issues and this will be a multitasker to help with depression, anxiety and pain. I will also start her on Neurontin 100 mg 3 times a day to combat the pain that she is experiencing. We will engage her in individual and lwoe milieu activity with the plan ultimately to return back to [facility] when psychiatrically stable. [place], [place] PATIENT HISTORY AND PHYSICAL EXAM NAME: HUMA MILLER UNIT #: [id number] ROOM: [facility] DOCTOR: JAZMINE LEBRON MD BIRTHDATE: [birth year] JAZMINE LEBRON MD CM:HISPHYS:PATIENT HISTORY AND PHYSICAL EXAMINATION [id number] JAZMINE LEBRON MD 09/29/17 0913 interface
[~2017-09-28 18:30] MED LIST changes: +TRINTELLIX10 MG PO
[2017-09-28 18:55] VITALS: BP 98/44
[2017-09-28 22:47] VITALS: BP 98/44
[2017-09-29 07:54] VITALS: BP 115/80
[2017-09-29 19:49] VITALS: BP 112/76
[2017-09-30 08:07] VITALS: BP 104/58
[2017-09-30 20:14] VITALS: BP 106/63
[2017-10-01 08:19] VITALS: BP 92/53
[2017-10-01 20:44] VITALS: BP 105/51
[2017-10-02 08:03] VITALS: BP 100/58
[2017-10-02 20:06] VITALS: BP 102/56
[2017-10-03 08:10] VITALS: BP 125/68
[2017-10-03 20:00] VITALS: BP 117/89
[2017-10-04 07:58] VITALS: BP 116/58
[2017-10-04 20:00] VITALS: BP 100/51
[2017-10-05] MEDS ORDERED: FLOMAX0.4 MG PO (07:44)
[2017-10-05] MEDS ORDERED: HYDROCODONE-AC1 EAC1 PO (07:50)
[2017-10-05 08:01] VITALS: BP 90/78
[2017-10-05] MEDS ORDERED: LATU80TA PO (09:29)
[2017-10-05] MEDS ORDERED: DULOXETINE HCL30 MG PO (09:29)
[2017-10-05] MEDS ORDERED: DULOXETINE HCL60 MG PO (09:29)
[2017-10-05] MEDS ORDERED: GABAPENTIN100 M2 PO (09:29)
[2017-10-05] MEDS ORDERED: Vitamin D PO (09:29)
== END 2017-10-05 14:30 | DRG 885 ==
LOC: 3N 18:30
DX: F33.2 Major depressive disorder, recurrent severe without psychotic features (principal); E87.8 Other disorders of electrolyte and fluid balance, not elsewhere classified; I50.32 Chronic diastolic (congestive) heart failure; I11.0 Hypertensive heart disease with heart failure; R45.851 Suicidal ideations; R73.9 Hyperglycemia, unspecified; J44.9 Chronic obstructive pulmonary disease, unspecified; K21.9 Gastro-esophageal reflux disease without esophagitis; E03.9 Hypothyroidism, unspecified; K29.70 Gastritis, unspecified, without bleeding; F60.3 Borderline personality disorder; E78.5 Hyperlipidemia, unspecified; I25.10 Atherosclerotic heart disease of native coronary artery without angina pectoris; K25.9 Gastric ulcer, unspecified as acute or chronic, without hemorrhage or perforation; G40.909 Epilepsy, unspecified, not intractable, without status epilepticus; G89.29 Other chronic pain; F41.9 Anxiety disorder, unspecified; F34.1 Dysthymic disorder; N20.0 Calculus of kidney; E55.9 Vitamin D deficiency, unspecified; Z90.49 Acquired absence of other specified parts of digestive tract; Z99.81 Dependence on supplemental oxygen; Z87.11 Personal history of peptic ulcer disease; Z79.899 Other long term (current) drug therapy; Z79.82 Long term (current) use of aspirin; Z87.891 Personal history of nicotine dependence; Z84.89 Family history of other specified conditions

== ENCOUNTER 2018-12-22 16:01 | Inpatient (IN) | payer MEDICAID ==
[~2018-12-22] VITALS: Ht 165.1 cm; Wt 154.2 kg
[~2018-12-22 16:01] MED LIST changes: +DULOXETINE HCL30 MG PO; +DULOXETINE HCL60 MG PO; +FLOMAX0.4 MG PO; +GABAPENTIN100 M2 PO; +Vitamin D PO
[2018-12-22] MEDS ORDERED: COGENTIN0.5 MG PO (17:49)
[2018-12-22] MEDS ORDERED: BUSPAR5 MG PO (17:49)
[2018-12-22] MEDS ORDERED: CLARITIN10 MG PO (17:50)
[2018-12-22] MEDS ORDERED: COLACE100 MG PO (17:50)
[2018-12-22] MEDS ORDERED: CELEXA20 MG PO (17:50)
[2018-12-22] MEDS ORDERED: EXCEDRIN MIGRA1 EAC1 PO (17:51)
[2018-12-22] MEDS ORDERED: FLUOCINONIDE-E15 GM T (17:53)
[2018-12-22] MEDS ORDERED: METOPROLOL SUCC25 M2 PO (17:54)
[2018-12-22] MEDS ORDERED: GABAPENTIN100 M2 PO (17:54)
[2018-12-22] MEDS ORDERED: PEPCID40 MG PO (17:55)
[2018-12-22] MEDS ORDERED: PROAIR HFA8.5 GM INH (17:55)
[2018-12-22] MEDS ORDERED: MIRALAX17 GM PO (17:55)
[2018-12-22] MEDS ORDERED: SALINE NASAL14.1 GM NAS (17:56)
[2018-12-22] MEDS ORDERED: VITAMIN E400 UNI2 PO (17:56)
[2018-12-22] MEDS ORDERED: XOPENEX0.31 MG/3 NEB (17:57)
[2018-12-22] MEDS ORDERED: NITRO-BID1 GM T (17:58)
[2018-12-22] MEDS ORDERED: MELATONIN10 M4 PO (17:59)
[2018-12-22] MEDS ORDERED: MOVANTIK25 MG PO (17:59)
[2018-12-22] MEDS ORDERED: LATU60TA PO (18:08)
--- NOTE | 2018-12-22 21:25 | NUR ---
HUMA MILLER a 58 year old F admitted via stretcher from the ADMITTING as a voluntary admission. Arrived on unit at 2124. ALLERGIES: NKA. Vital signs are: 97.5-59-18 92/54. The client signed the following forms with stated understanding: Authorization For The Release of Medical Information, Clothing List, Consent to Voluntary Admission and Hospitalization, Consent and Release Forms/Receipt of Rights, Acknowledgement of Advance Directive Information, Behavioral Health Consent Form, and Informed Consent of Medications. [facility] A search was conducted and hazardous articles were removed. Client was oriented to the unit. JEANETTE ACOSTA
--- NOTE | 2018-12-22 21:30 | NUR ---
Dr. Villalobos on floor and examined patient. Awaiting new orders.
--- NOTE | 2018-12-22 21:30 | NUR ---
Patient consented to skin assessment. Skin intact. Small,dry,intact scabbed area noted on left elbow.
[2018-12-22 21:45] VITALS: BP 92/54
--- NOTE | 2018-12-22 22:00 | NUR ---
Patient states she is hearing voices to kill herself. No noted responding to internal stimuli during assessment.
--- NOTE | 2018-12-22 23:10 | NUR ---
Called and notified Dr. Whitfield regarding patient's suicide risk score of 47. Dr. Whitfield said to maintaine q 15 minute checks.
--- NOTE | 2018-12-23 00:44 | NUR ---
24 HR chart check completed.
[2018-12-23 07:01] LABS: BASO # 0.1 10*3/uL (0.0-0.1); BASO % 0.6 % (0.0-1.0); EOS # 0.2 10*3/uL (0.0-0.4); EOS % 1.5 % (1.0-4.0); HEMATOCRIT 44.9 % (37.0-47.0); HEMOGLOBIN 13.8 g/dl (12.0-16.0); LYMPH % 20.2 % (27.0-41.0); MEAN CELL VOLUME 90.3 fl (81.0-99.0); MEAN CORPUSCULAR HGB 27.8 pg (27.0-31.0); MEAN CORPUSCULAR HGB CONC 30.7 g/dl (33.0-37.0); MEAN PLATELET VOLUME 10.7 fl (9.6-12.3); MONO % 9.5 % (3.0-9.0); NEUT # 6.8 10*3/uL (2.3-7.9); NEUT % 67.7 % (47.0-73.0); PLATELET COUNT AUTOMATED 242 10*3/uL (130-400); RED BLOOD COUNT 4.97 10*6/uL (4.10-5.10); RED CELL DISTRI WIDTH 14.8 % (0-14.5)
[2018-12-23 07:27] LABS: ALBUMIN 3.3 gm/dl (3.1-4.5); CHLORIDE 111 mmol/L (98-107); POTASSIUM 3.8 mmol/L (3.5-5.1); SODIUM 140 mmol/L (136-145)
[2018-12-23 07:43] LABS: ALKALINE PHOSPHATASE 107 U/L (45-117); BUN 12 mg/dl (7-24); CHOLESTEROL 127 mg/dL (<200); CREATININE 0.84 mg/dL (0.55-1.02); HDL CHOLESTEROL 43 mg/dl (40-60); LDL CHOLESTEROL 66 mg/dL (9-159); SGOT/AST 17 IU/L (3-35); SGPT/ALT 25 U/L (12-78); THYROID STIM HORMONE (HS) 0.541 uIU/ml (0.358-4.75); TOTAL PROTEIN 7.7 gm/dL (6.4-8.2); TRIGLYCERIDES 92 mg/dl (<150); VLDL CHOLESTEROL 18 mg/dL (6-40)
[2018-12-23 07:54] VITALS: BP 122/88
--- NOTE | 2018-12-23 08:00 | NUR ---
Patient resting quietly with c/o discomfort rated 10/10 to BLE. Respirations easy and regular. Vital signs stable. Pt requesting PRN norco with routine morning medications. MECCA GAUTAM
--- NOTE | 2018-12-23 08:00 | NUR ---
Treatment Plan meeting with Dr. Whitfield RN, AT, SW and Program Coordinator [facility]. Plan for discharge Next week. Pt. came to [facility] from [facility]. Will reach out to facility today to discuss discharge Planning.
--- NOTE | 2018-12-23 09:04 | NUR ---
prn norco given for pain to BLE rated 10/10, at pt request.
--- NOTE | 2018-12-23 09:15 | NUR ---
Spoke with Jeanne at [facility]. Pt. is [facility] facility and will return at discharge. Clinical Updates faxed to facility.
[2018-12-23 09:31] LABS: VITAMIN D, 25-HYDROXY 30.7 ng/mL (30-100)
--- NOTE | 2018-12-23 10:40 | NUR ---
PHYSICAL THERAPY Attempted Physical therapy evaluation however Pt in private room with activity staff. Will attempt later. Thank you Dasha Padgett, PT, DPT
--- NOTE | 2018-12-23 10:43 | NUR ---
Patient not available for Occupational Therapy evaluation as she is with staff activity therapist. Mali Ortiz OTR/l
--- NOTE | 2018-12-23 10:47 | NUR ---
Pt states she is depressed/anxious. Assessed for orientation level, mood, and affect. Pt assessed for SI, intent or plan. Assessed for hallucinations and delusions. Provided emotional support and 1:1. Pt alert, oriented x4. Mood is stable, affect is appropriate. Pt has episodes of tearfulness upon discussing "overwhelmed" feeling. Pt denies active SI at this time, does have passive wish. Pt denies hallucinations at this time. Emotional support somewhat effective. Pt has no further episodes of tearfulness. WIll continue to provide emotional support as appropriate. Will continue to monitor pt's mood and suicidal ideations. q15 min monitoring appropriate per .
--- NOTE | 2018-12-23 11:30 | NUR ---
PT STATES PRN NORCO MINIMALLY EFFECTIVE
--- NOTE | 2018-12-23 11:44 | NUR ---
AM GROUP PT ASSESSMENT WAS COMPLETED THIS MORNING AND GOALS WERE SET. PT ATTENDED MORNING GROUP THERAPY AND PARTICIPATED BY SOCIALIZING WITH PEERS. PT EXPRESSED NO SUICIDAL IDEATIONS WHILE IN THE ASSESSMENT OR IN GROUP
--- NOTE | 2018-12-23 13:57 | NUR ---
Completed MD Medicaid online authorization. Ref # [id number], Tracking # [id number]. Waiting for determination.
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
[2018-12-23 19:30] VITALS: BP 100/56
--- NOTE | 2018-12-23 23:37 | NUR ---
P-ISOLATIVE. PATIENT ALERT AND ORIENTED. PATIENT WITH NO RESPIRATORY DISTRESS AT THIS TIME. PATIENT WITH BIPAP ON AT HS. PATIENT WITH NO HALLUCINATIONS OR DELUSIONS. PATIENT WITH NO SUICIDAL OR HOMICIDAL IDEATIONSAT THIS TIME. I-REDIRECTION WITH 1:1 THERAPEUTIC INTERVENTIONS. EDUCATE AND ENCOURAGE MEDICATION COMPLIANCE. R-PATIENT REFUSED MIRALAX AT HS. PATIENT INQUIRING ABOUT MEDICATIONS AND STATED "DR LEBRON SAID HE WAS GOING TO ORDER METAMUCIL, BUT I DIDN'T GET IT TODAY". THIS REVIEWED MEDICATIONS WITH PATIENT AT HS. PATIENT REFUSING NOURISHMENT AT HS BUT ACCEPTED FLUIDS. P-CONTINUE TO ENCOURAGE MEDICATION COMPLIANCE, ENCOURAGE GROUP THERAPY WHILE AWAKE
--- NOTE | 2018-12-24 03:30 | NUR ---
24 HR chart check completed.
--- NOTE | 2018-12-24 05:59 | NUR ---
PATIENT SLEPT > 8 OF INTERRUPTED SLEEP THROUGHOUT SHIFT. Q 15 MINUTE CHECKS MAINTAINED.
[2018-12-24 07:36] VITALS: BP 107/61
--- NOTE | 2018-12-24 07:43 | NUR ---
Patient eating breakfast with no c/o discomfort. Respirations easy and regular. Vital signs stable. No overt distress. MECCA GAUTAM
--- NOTE | 2018-12-24 08:00 | NUR ---
Treatment Plan meeting with Dr. Whitfield, RN, AT, SW and Sales Strategy Manager. Plan for discharge next week. Pt. will return to [facility].
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
--- NOTE | 2018-12-24 11:10 | NUR ---
Pt states she is sad. Isolative and withdrawn to self. Assessed for orientation level, mood, and affect. Pt assessed for SI, intent or plan. Assessed for hallucinations and delusions. Provided emotional support and 1:1. Pt alert, oriented x4. Mood is stable, affect is appropriate. Pt denies active SI at this time, does have passive wish to "stop living, and stop living like this". Pt denies hallucinations at this time. Emotional support somewhat effective. Pt sat in community area but did not interact with staff and peers. WIll continue to provide emotional support as appropriate. Will continue to monitor pt's mood and suicidal ideations. Will continue to encourage participation in group and interaction with staff and peers. q15 min monitoring appropriate per .
--- NOTE | 2018-12-24 13:11 | NUR ---
Clinical Updates faxed to [facility].
--- NOTE | 2018-12-24 13:31 | NUR ---
Attempted to meet with pt individually for counseling. Pt stated that she was not feeling good today and was feeling very tired. Gave pt papers about core beliefs, personal strengths, and self-esteem for pt to read and work on over the weekend. Will plan on meeting with pt on Thursday, 12/27.
--- NOTE | 2018-12-24 14:44 | NUR ---
This continuity writer has been researching possible daycare centers for pt or group activities for when pt [facility] to the [facility]. Pt stated that she is wanting to be in a group of people that are around her age, as she is with the [facility] population [facility]. Pt stated that she believes that she won't mind living in the [facility] if she were able to be with younger people at times. At this point, the options available are with the older population. Will continue to research options for pt.
--- NOTE | 2018-12-24 15:00 | NUR ---
Occupational Therapy evaluation completed on 3 with full eval to follow. Precautions include fall risk, obesity,right AFO with out shoe laces (d/t unit precautions); nursing using zip-ties, functional mobility without w/c, low complexity level 10358. Recommend no further OT, however, prior level of functioning, patient was independently using a wide w/c and pushing it for support which then allowed her a seat when she was tired that would accommodate her size. Recommend use of wide w/c on 3N unit to nursing Thankyou. Mali Ortiz OTR/l
--- NOTE | 2018-12-24 15:00 | NUR ---
PHYSICAL THERAPY Physical therapy evaluation completed, 3N. Full details to follow. Moderate complexity determined after evaluation/chart review, [address]. No PT needs at this time. Spoke with nursing staff and recommend finding a wide seat wheelchair for Patient to ambulate with in hallways independently on unit. Pt reports this was what she did prior to her admission to hospital. Recommending returning to retirement care at [facility]. Thank you Dasha Padgett, PT, DPT
[2018-12-24 15:43] LABS: BILIRUBIN NEGATIVE (NEGATIVE); BLOOD 3+ (NEGATIVE); CLARITY SL CLOUDY (CLEAR); COLOR YELLOW (YELLOW); GLUCOSE NEGATIVE (NEGATIVE); KETONE NEGATIVE (NEGATIVE); LEUKO ESTERASE 1+ (NEGATIVE); NITRITE NEGATIVE (NEGATIVE); PH 5.5 (5.0-9.0); SPECIFIC GRAVITY 1.025 (1.005-1.030); UROBILINOGEN 0.2 E.U./dl (0.2-1.0)
[2018-12-24 16:15] LABS: EPITHELIAL CELLS TNTC; RBC 51-100 rbc/hpf (0-2); URIC ACID CRYSTALS 1+
[2018-12-24 16:16] LABS: BACTERIA 1+
[2018-12-24 19:53] VITALS: BP 105/65
--- NOTE | 2018-12-24 23:47 | NUR ---
P-ISOLATIVE. PATIENT ALERT AND ORIENTED. PATIENT WITH NO RESPIRATORY DISTRESS AT THIS TIME. PATIENT WITH BIPAP ON AT HS. PATIENT WITH NO HALLUCINATIONS OR DELUSIONS. PATIENT WITH NO SUICIDAL OR HOMICIDAL IDEATIONS AT THIS TIME. I-REDIRECTION WITH 1:1 THERAPEUTIC INTERVENTIONS. EDUCATE AND ENCOURAGE MEDICATION COMPLIANCE. R-PATIENT MEDICATION COMPLIANT AT HS. PATIENT AMBULATING IN ROOM WITH STEADY GAIT AND WITH NO ASSISTIVE DEVICE. PATIENT REFUSING NOURISHMENT AT HS BUT ACCEPTED FLUIDS. P-CONTINUE TO ENCOURAGE MEDICATION COMPLIANCE, ENCOURAGE GROUP THERAPY WHILE AWAKE
[2018-12-25 07:04] VITALS: BP 102/64; BP 104/60
--- NOTE | 2018-12-25 08:15 | NUR ---
DR. PHAN NOTIFIED OF PATIENTS MANUAL BLOOD PRESSURE 104/60 AND PULSE 63. MADE AWARE OF SCHEDULED MORNING MEDICATIONS. DR. PHAN STATED TO GIVE SCHEDULED LASIX 20MG PO AND METROPOLOL 25MG; STATED TO HOLD NITRO TOPICAL.
--- NOTE | 2018-12-25 11:58 | NUR ---
Shift chart check completed.
--- NOTE | 2018-12-25 11:59 | NUR ---
AM GROUP PT ATTENDED AND PARTICIPATED IN GROUP. PT PLEASANT AND ON TASK WITH NO S.I. OR HALLUCINATIONS EXPRESSED AT THIS TIME. PT WILL CONTINUE TO ATTEND AND PARTICIPATE IN FUTURE RGOUP SESSIONS TO BEST OF PT ABILITY.
--- NOTE | 2018-12-25 12:03 | NUR ---
DR. THOMAS NOTIFIED OF UA RESULTS AND URINE CULTURE. PT C/O L GROIN PAIN. DR. TOHMAS STATED HE WILL TAKE A LOOK AT IT.
--- NOTE | 2018-12-25 13:31 | NUR ---
NO ADVERSE MOODS OR BEHAVIORS NOTED THIS SHIFT. ALERT AND ORIENTED X4. MOOD STABLE, PLEASANT, AND COOPERATIVE. ATTENDING/PARTICIPATING IN GROUP THERAPY. EATING AND DRINKING ADEQUATELY. DENIES HALLUCINATIONS, SI/HI, INTENT/PLAN, OR PAIN. NO S/S OF INTERACTING WITH INTERNAL STIMULI. NO S/S OF DELUSIONAL THOUGHT PROCESS NOTED. RESPS EVEN AND UNLABORED ON ROOM AIR. PT CAN BECOME PREOCCUPIED WITH MEDICATIONS, EDUCATION PROVIDED. GAIT STEADY WHILE AMBULATING. WEARS FOOT BRACE TO R FOOT, SKIN INTACT AND NO DISCOLORATION NOTED. FALLING STAR PROGRAM MAINTAINED. SEIZURE PRECAUTIONS MAINTAINED DUE TO HISTORY. Q15 MINUTE CHECKS MAINTAINED FOR SAFETY.
--- NOTE | 2018-12-25 15:43 | NUR ---
PM GROUP/ART PT ENCOURAGED TO ATTEND AND PARTICIPATE IN GROUP BUT TO CHOSE TO REMIANIN BED RESTING AT THIS TIME. PT WILL CONTINUE TO BE ENCOURAGED OT ATTEND AND PARTICIPATE IN FUTURE GROUP SESSIONS.
[2018-12-25 19:48] VITALS: BP 130/68
--- NOTE | 2018-12-25 23:33 | NUR ---
P-PREOCCUPIED. PATIENT ALERT AND ORIENTED. PATIENT WITH NO RESPIRATORY DISTRESS AT THIS TIME. PATIENT WITH BIPAP ON AT HS. PATIENT WITH NO HALLUCINATIONS OR DELUSIONS. PATIENT WITH NO SUICIDAL OR HOMICIDAL IDEATIONS AT THIS TIME. I-REDIRECTION WITH 1:1 THERAPEUTIC INTERVENTIONS. EDUCATE AND ENCOURAGE MEDICATION COMPLIANCE. R-PATIENT REFUSED METAMUCIL AND MIRALAX AT HS. PATIENT AMBULATING IN ROOM WITH STEADY GAIT AND WITH NO ASSISTIVE DEVICE. PATIENT PROVIDED NOURISHMENT AND FLUIDS AT HS. PATIENT INTERACTING WITH PEERS IN DINING AREA AND WATCHING A MOVIE. P-CONTINUE TO ENCOURAGE MEDICATION COMPLIANCE, ENCOURAGE GROUP THERAPY WHILE AWAKE
--- NOTE | 2018-12-26 00:40 | NUR ---
24 HR chart check completed.
--- NOTE | 2018-12-26 05:50 | NUR ---
PATIENT SLEPT >8 HOURS OF UNINTERRUPTED SLEEP THROUGHOUT SHIFT. Q 15 MINUTE CHECKS MAINTAINED
[2018-12-26 08:00] VITALS: BP 120/83
--- NOTE | 2018-12-26 08:23 | NUR ---
PT SITTING IN DINING OOM WITH PEERS, EATING BREAKFAST. NO S/S OF DISTRESS NOTED. RESPS EVEN AND UNLABORED ON ROOM AIR.
--- NOTE | 2018-12-26 10:04 | NUR ---
PT C/O "THROBBING HEADACHE" RATING 8 OUT OF 10. REQUESTING AND RECEIVED AT THIS TIME PRN PO EXCEDRIN PER PRN ORDER. WILL CONTINUE TO MONITOR FOR EFFECTIVENESS.
--- NOTE | 2018-12-26 11:04 | NUR ---
PT STATES PRN EXCEDRIN EFFECTIVE FOR HEADACHE. NO FURTHER COMPLAINTS AT THIS TIME.
--- NOTE | 2018-12-26 13:35 | NUR ---
Shift chart check completed.
--- NOTE | 2018-12-26 13:44 | NUR ---
P- DEPRESSED MOOD. HOPELESS/HELPLESS. I- ASSESS MOOD, ORIENTATION, SI/HI, INTENT/PLAN, HALLUCINATIONS, DELUSIONS OR PAIN. 1:1 THERAPEUTIC INTERACTION WITH EMOTINAL SUPPORT AND VENTILATION OF FEELINGS PROVIDED. PROVIDE MEDICATIONS ON TIME WITH EDUCATION ON EACH. ENCOURAGE TO ATTEND/PARTICIPATE IN GROUP THERAPIES AND GARCIA MILIEU ACTIVITIES FOR EMOTIONAL SUPPORT AND SOCIALIZATION. PROVIDE WITH COPING AND RELAXATION TECHNIQUES. R- ALERT AND ORIENTED X4. PT STATES THAT SHE IS FEELING SLIGHTLY DEPRESSED STILL. DENIES SI/HI, INTENT OR PLAN. VERBALLY CONTRACT FOR SAFETY. DENIES HALLUCINATIONS OR PAIN AT THIS TIME. NO S/S OF INTERACTING WITH INTERNAL STIMULI. NO DELUSIONAL THOUGHT PROCESS NOTED. NO S/S OF DISTRESS NOTED. RESPS EVEN AND UNLABORED ON ROOM AIR. MEDICATION COMPLIANT WITH NO DIFFICULTIES. 1:1 THERAPEUTIC INTERACTION EFFECTIVE. PT STATES "I JUST DONT KNOW WHY I FEEL LIKE THIS, I JUST FEEL SAD AND HOPELESS". PT INTERACTING WITH PEERS AND STAFF. PARTICIPATING IN ACTIVITIES AND COLORING FOR RELAXATION. EATING AND DRINKING ADEQUATELY. GAIT STEADY WHILE AMBULATING. MAKES NEEDS KNOWN. P- ASSESS MOOD, ORIENTATION, SI/HI, INTENT/PLAN, HALLUCINATIONS, DELUSIONS OR PAIN EVERY SHIFT. VERBALLY CONTRACT FOR SAFETY. 1:1 THERAPEUTIC INTERACTION WITH EMOTIONAL SUPPORT AND VENTILATION OF FEELINGS PROVIDED. ENCOURAGE TO UTILIZE COPING AND RELAXATION TECHNIQUES. PROVIDE MEDICATIONS ON TIME WITH EDUCATION ON EACH. ENCOURAGE TO ATTEND/PARTICIPATE IN GROUP THERAPIES AND GARCIA MILEIU ACTIVITIES FOR EMOTIONAL SUPPORT AND SOCIALIZATION. FALLING STAR PROGRAM IN PLACE. SEIZURE PRECAUTIONS MAINAINED DUE TO HISOTRY. Q15 MINUTE CHECKS MAINTAINED FOR SAFETY.
--- NOTE | 2018-12-26 14:09 | NUR ---
PATIENT C/O CHEST PAIN. PT STATES THAT SHE IS HAVING SHARP PAIN UNDER L BREAST RATING 8 OUT OF 10; PT STATES THAT SHE IS NAUSEATED. DENIES VOMITING OR DIARRHEA. VITAL SIGNS 98.2, 65, 16, 112/86, 94% ROOM AIR. RESPIRATIONS EVEN AND UNLABORED. PT'S SKIN PINK, WARM, AND DRY. DR. THOMAS NOTIFIED OF THE ABOVE. DR. THOMAS STATED HE WILL PUT IN ORDERS.
--- NOTE | 2018-12-26 14:20 | NUR ---
DR. THOMAS NOTIFIED OF EKG BACK FOR REVIEW.
[2018-12-26 20:03] VITALS: BP 132/78
--- NOTE | 2018-12-26 20:05 | NUR ---
PHLEBOTOMY ON UNIT FOR THIRD TROPONIN BLOOD DRAW
--- NOTE | 2018-12-26 20:10 | NUR ---
RESPIRATORY ON UNIT TO DO EKG
--- NOTE | 2018-12-26 21:59 | NUR ---
P-PREOCCUPIED. PATIENT ALERT AND ORIENTED. PATIENT WITH NO RESPIRATORY DISTRESS AT THIS TIME. PATIENT WITH BIPAP ON AT HS. PATIENT WITH NO HALLUCINATIONS OR DELUSIONS. PATIENT WITH NO SUICIDAL OR HOMICIDAL IDEATIONS AT THIS TIME. I-REDIRECTION WITH 1:1 THERAPEUTIC INTERVENTIONS. EDUCATE AND ENCOURAGE MEDICATION COMPLIANCE. R-PATIENT MEDICATION COMPLIANT. PATIENT WITH COMPLAINT THAT "NO DOCTOR HAS SEEN ME IN 2 DAYS AND I HAD CHEST PAIN TODAY". PATIENT WITH A DEPRESSED MOOD AND STATING, "WAIT UNTIL MY SISTER FINDS OUT ABOUT ALL THIS". PATIENT UPSET AND STATING "ISAAC TOLD ME I HAVE BACTERIA IN MY URINE AND THE DOCTORS DIDN'T DO ANYTHING". PATIENT NOT RUNNING A TEMPERATURE AND COMPLAINING OF LEFT GROIN PAIN. NO OTHER COMPLAINTS OF DYSURIA. THIS NURSE REVIEWED URINE RESULTS WITH PATIENT AND EXPLAINED TO PATIENT THE RESULTS WERE NOT >100,000 CFU/ML. PATIENT VERBALIZED UNDERSTANDING OF URINE LAB RESULTS, BUT STATED, "THE RESULTS PROBABLY ARE NOT RIGHT. THEY GAVE ME A SHOT IN MY ARM THE BACTERIA COULD STILL BE THERE. THIS NURSE TO UPDATE THE DOCTOR ABOUT PATIENT CONCERNS. PATIENT AMBULATING IN ROOM AND ON UNIT WITH STEADY GAIT AND WITH NO ASSISTIVE DEVICE. PATIENT PROVIDED NOURISHMENT AND FLUIDS AT HS. PATIENT INTERACTING WITH PEERS IN DINING AREA COLORING AND WATCHING TELEVISION. P-CONTINUE TO ENCOURAGE MEDICATION COMPLIANCE, ENCOURAGE GROUP THERAPY WHILE AWAKE
--- NOTE | 2018-12-26 22:31 | NUR ---
DR COBB UPDATED ABOUT LAB RESULTS AND EKG RESULTS. DR COBB UPDATED ABOUT URINE RESULTS. DR COBB UPDATED ABOUT PATIENT COMPLAINT THAT NO MEDICAL DOCTOR HAS BEEN TO SEE HER IN TWO DAYS. DR UPDATED THAT PATIENT IS HAVING LEFT GROIN PAIN AND AWARE THAT URINE SPECIMEN TO BE RECOLLECTED. DR COBB TO UPDATE MEDICAL DOCTORS IN AM.
--- NOTE | 2018-12-27 05:25 | NUR ---
URINE SPECIMEN COLLECTED VIA CLEAN CATCH AT THIS TIME. PATIENT WITH PREVIOUS LEFT GROIN PAIN, BUT DENIES AT THIS TIME. PATIENT WITH CLOUDY YELLOW URINE. URINE OUTPUT OF 250ML. PATIENT CONTINENT. FLUIDS PROVIDED.
--- NOTE | 2018-12-27 05:50 | NUR ---
PATIENT SLEPT 7 HOURS OF INTERRUPTED SLEEP THROUGHOUT SHIFT. Q 15 MINUTE CHECKS MAINTAINED
[2018-12-27 06:33] LABS: BILIRUBIN NEGATIVE (NEGATIVE); BLOOD 3+ (NEGATIVE); CLARITY CLOUDY (CLEAR); COLOR YELLOW (YELLOW); GLUCOSE NEGATIVE (NEGATIVE); KETONE NEGATIVE (NEGATIVE); LEUKO ESTERASE 1+ (NEGATIVE); NITRITE NEGATIVE (NEGATIVE); SPECIFIC GRAVITY 1.015 (1.005-1.030); UROBILINOGEN 0.2 E.U./dl (0.2-1.0)
[2018-12-27 07:42] VITALS: BP 107/62
--- NOTE | 2018-12-27 08:15 | NUR ---
Treatment Plan meeting with Dr. Whitfield, RN, AT, and Forest Botany Instructor. Plan for discharge . Pt. will return to [facility].
[2018-12-27 08:48] LABS: BACTERIA 3+; EPITHELIAL CELLS 20-30; RBC TNTC rbc/hpf (0-2); WBC TNTC wbc/hpf (0-5)
--- NOTE | 2018-12-27 09:45 | NUR ---
DR. SARAH ON UNIT TO ASSESS PATIENT; UPDATED ON LABS.
--- NOTE | 2018-12-27 10:20 | NUR ---
Spoke with Jeanne at [facility]. Notified of plans to discharge . Clinical Updates faxed to facility.
--- NOTE | 2018-12-27 10:37 | NUR ---
Met with pt this AM. Pt stated that a child protective services social worker from the [facility] was at [facility] on Thursday to assess pt for [facility]. Pt stated that the sw shared with her that the sw is going to recommend that pt transition to an assisted living. Discussed this further with the pt. Pt stated that she is unsure if she is ready to live in that level of care. Explained to pt that it would be a process and that it may take some time before a move would be made. Pt voiced understanding. Discussed the papers that this check writer had left for pt to work on over the weekend. Pt did complete those. Plan to meet with pt later today to go over papers and provide counseling.
--- NOTE | 2018-12-27 11:35 | NUR ---
AM GROUP/CURRENT EVENTS AND LIGHT THERAPY PT ATTENDED AND PARTICIPATED IN ALL MORNING GROUP ACTIVITIES. PT EXPRESSED NO SUICIDAL IDEATIONS OR HALLUCINATIONS WHILE IN GROUP. PT WAS ON TASK AND TALKATIVE.
--- NOTE | 2018-12-27 12:32 | NUR ---
P: DEPRESSED MOOD, WITHDRAWN TO SELF WHILE IN DINNING ROOM. I: ONE ON ONE FOR EMOTIONAL SUPPORT, ENCOURAGED TO PARTICIPATE IN GROUP SESSION. R: EFFECTIVE; PATIENT IS ALERT AND ORIENTED TO PERSON, PLACE, TIME AND SITUATION; ABLE TO VOICE NEEDS. MOOD IS DEPRESSED WITH FLAT AFFECT. DENIES ANY HALLUCINATIONS, DELUSIONS, HI/SI OR PAIN. MEDICATION COMPLAINT WITH EDUCATION PROVIDED. Q 15 MINUTE SAFETY CHECKS MAINTAINED. 1 PERSON ASSIST NEEDED FOR ACTIVITIES OF DAILY LIVING, CONTINENT OF BOWEL AND BLADDER. SET UP FOR MEALS, INTAKES ARE GOOD WITH ADEQUATE FLUIDS. AMBULATES INDEPENDENTLY USING HAND RAILING. STEADY GAIT. P: CONTINUE TO MONITOR MOOD, VOICED THOUGHTS OF SI. PROVIDE ONE ON ONE TO EXPRESS FEELING, ENCOURAGE GROUP SESSIONS AND MORE INTERACTIONS WITH PATIENTS IN DINING ROOM. CONTRACT WITH SAFETY NEEDED.
--- NOTE | 2018-12-27 15:24 | NUR ---
IP param per [place] Medicaid online. Ref # [id number]
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
--- NOTE | 2018-12-27 15:36 | NUR ---
PM GROUP PT DID NOT ATTEND AFTERNOON GROUP THERAPY. PT WAS WITH SW AND THEN WENT TO HER ROOM
--- NOTE | 2018-12-27 15:36 | NUR ---
Shift chart check completed.
[2018-12-27 19:27] VITALS: BP 103/65
--- NOTE | 2018-12-27 20:30 | NUR ---
EVENING GROUP/ MOVIE AND POPCORN! PT ATTENDED AND PARTICIPATED IN GROUP. PT PLEASANT WITH NO HALLUCINATIONS OR S.I. EXPRESSED AT THIS TIME. PT WILL CONTINUE TO ATTEND AND PARTICIPATE IN GROUP TO BEST OF PT ABILITY.
--- NOTE | 2018-12-27 22:35 | NUR ---
PT PLEASANT, COOPERATIVE WITH MEDICATIONS, AMBULATED IN HALLWAY USING HAND RAIL GAIT STEADY. PT HAD NO COMPLAINT OF PAIN OR DISCOMFORT. DISPLAYED AWARENESS OF MEDICATIONS AND WHAT THEY WERE HELPING HER WITH. PT REPORTS SHE IS FEELING BETTER, SHE JUST DOESN'T KNOW HOW EVERYTHING WILL WORK OUT WHEN SHE RETURNS HOME AND THAT WORRIES HER. PT WOULD NOT ELABORATE DUE TO SHE WANTED TO GO BED AT THAT TIME. SHE IS CURRENTLY RESTING WITH BIPAP ON, MAINTAIN 15 MIN CHECKS, NO SI.HI OR DELUSIONS NOTED
--- NOTE | 2018-12-27 22:38 | NUR ---
24 HR chart check completed.
--- NOTE | 2018-12-28 04:41 | NUR ---
PT REMOVED BIPAP AT THIS TIME STATING "I AM DONE, I ONLY DO 6 HOURS, TURN THIS THING OFF" RESPIRATORY NOTIFIED.
--- NOTE | 2018-12-28 06:07 | NUR ---
PT SLEPT PAST [phone]
[2018-12-28 07:36] VITALS: BP 108/66
--- NOTE | 2018-12-28 08:00 | NUR ---
Treatment Plan meeting with Dr. Whitfield, RN, AT, and Wood Patternmaker Apprentice. Plan for discharge . Pt. will return to [place] at discharge.
--- NOTE | 2018-12-28 10:45 | NUR ---
DR. CAT ON UNIT TO ASSESS PATIENT AND UPDATED ON MORNING BLOOD PRESSURE.
--- NOTE | 2018-12-28 11:27 | NUR ---
PATIENT IS ALERT AND ORIENT TO PERSON, PLACE, TIME AND SITUATION; ABLE TO VOICE NEEDS. MOOD IS SLIGHTLY IRRITABLE, REDIRECTION EFFECTIVE. DENIES ANY HALLUCINATIONS, DELUSIONS, HI/SI OR PAIN. PATIENT INTERACTIVE WITH STAFF AND OTHER PATIENTS, PARTICIPATED IN GROUP SESSION. PATIENT IS MORE INTERACTIVE TODAY THAN YESTERDAY. MEDICATION COMPLAINT. Q 15 MINUTE SAFETY CHECKS MAINTAINED. 1 PERSON ASSIST WITH ACTIVITIES OF DAILY LIVING, CONTINENT OF BOWEL AND BLADDER, SET UP FOR MEALS, INTAKES ARE GOOD WITH ADEQUATE FLUIDS. AMBULATORY WITH STEADY GAIT. NO VOICED STATEMENTS OF SI. CONTINUE TO MONITOR MOOD, VOICED STATEMENT OF SI, PROVIDE ONE ON ONE FOR EMOTIONAL SUPPORT, ENCOURAGE GROUP ACTIVITIES AND INTERACT WITH STAFF AND OTHER PARTIENT.
--- NOTE | 2018-12-28 11:39 | NUR ---
AM GROUP/LIGHT AND COLOR THERAPY PT ATTENDED AND PARTICIPATED IN ALL GROUP ACTIVITIES. PT EXPRESSED NO HALLUCINATIONS OR SUICIDAL IDEATIONS WHILE IN GROUP. PT DID EXPRESS AGITATION TOWARD NURSING AND THE MEDICAL DOCTORS STATING, "I WISH PEOPLE WOULD DO WHAT THEY SAY! WE'LL SEE IF ANYTHING GETS DONE, IF NOT, YOU'RE GOING TO SEE A TORNADO RIP THROUGH HERE!"
--- NOTE | 2018-12-28 11:55 | NUR ---
Patient participated in group discussion about self-affirmations. Completed group activity of "I Like Myself from A to Z." Patient interacted well with peers and staff during this time.
--- NOTE | 2018-12-28 15:09 | NUR ---
Shift chart check completed.
--- NOTE | 2018-12-28 15:38 | NUR ---
PM GROUP/CRAFTS PT ATTENDED AND PARTICIPATED IN ALL GROUP ACTIVITIES. PT EXPRESSED NO SUICIDAL IDEATIONS WHILE IN GROUP. PT WAS TALKATIVE BUT ON TASK.
--- NOTE | 2018-12-28 17:36 | NUR ---
PATIENT COMPLAINING OF LEFT SHOULDER PAIN. RATING 8/10. PRN TYLENOL 650MG PO AT THIS TIME.
--- NOTE | 2018-12-28 18:29 | NUR ---
PATIENT UP IN THE DINING ROOM IN GROUP, PARTICIPATING, COLORING; NO FURTHER COMPLAINTS OF PAIN. TYLENOL EFFECTIVE.
[2018-12-28 19:49] VITALS: BP 110/68
--- NOTE | 2018-12-28 20:38 | NUR ---
EVENING GROUP/BINGO! PT ATTENDED AND PARTICIPATED IN ALL GROUP ACTIVITY'S. PT PLEASANT AND ON TASK WITH NO S.I. OR HALLUCINATIONS EXPRESSED AT THIS TIME. PT WILL CONTINUE TO ATTEND AND PARTICIPATE IN FUTURE GROUP SESSIONS.
--- NOTE | 2018-12-28 21:00 | NUR ---
PT WAS GIVEN HER MEDICATION LIST TO REVIEW PER REQUEST.
--- NOTE | 2018-12-28 21:41 | NUR ---
PT UP IN COMMON AREA WITH PEERS, WATCHING T.V. MEDICATION REVIEWED WITH PT PER REQUEST. PT BECAME INCREASINGLY AGITATED WITH MEDICATIONS WHEN SHE WAS INFORMED THAT HER NITRO PASTE HAD BEEN DISCONTINUED. PT STATED THAT HER FORENSIC PSYCHOLOGIST WAS FINE WITH HER BLOOD PRESSURES BEING WHERE THEY ARE AND THAT A LOW BP FOR HER WAS "90/70'S " PT ALSO REQUESTED THAT SHE RECEIVE A COPY OF HER CURRENT MEDICATIONS SO THAT SHE CAN BE AWARE OF ALL CHANGES THAT HAVE BEEN MADE. THIS NURSE TALKED WITH PT IN REFERENCE TO MEDIICATIONS AND THAT SHE COULD SPEAK WITH DOCTORS IN THE MORNING, I ALSO INFORMED HER THAT I WOULD PASS ON HER FORENSIC PSYCHOLOGIST INFORMATION TO FOLLOW UP WITH PER HER REQUEST. PT STATED "IF I HAVE TO BE TORNADO HUMA TO GET MY WAY, HUMA WILL BE LOUD LIKE NOONE HAS SEEN, HUMA WILL GET WHAT SHE WANTS." PT GIVEN 1:1 AT THIS TIME AND WAS COMFORTABLE WITH WAITING TILL MORNING TO TALK ABOUT MEDICATION CHANGES.
--- NOTE | 2018-12-28 21:49 | NUR ---
PATIENT PLACED ON BIPAP FOR THE NIGHT
--- NOTE | 2018-12-28 22:06 | NUR ---
DR. THOMAS UPDATED ON PT REQUEST ABOUT MEDICATIONS. UPDATED ON BLOOD PRESSURE HISTORY AND AWARE OF PT CONCERNS. DR THOMAS WILL ADDRESS ANY ISSUES THAT MAY ARISE THROUGHOUT THE NIGHT BUT AT THIS TIME PT IS ASYMPTOMATIC AND WILL CONTINUE ON CURRENT MEDICATIONS. PT TO BE REVIEWED IN THE AM.
--- NOTE | 2018-12-29 02:37 | NUR ---
AT 2200 PT INFORMED OF DISCUSSION WITH DR. THOMAS AND AGREED TO TALK TO THEM IN THE MORNING.
--- NOTE | 2018-12-29 04:29 | NUR ---
PATIENT OFF BIPAP FOR THE DAY PER NURSING
--- NOTE | 2018-12-29 04:59 | NUR ---
PT UP AT THIS TIME TO TAKE A SHOWER, MINIMAL ASSIST FOR SET-UP COMPLETED. PT COMPLAINT OF SOB POST SHOWER WITH REQUEST FOR BREATHING TREATMENT. RESPIRATORY NOTIFIED OF SAME
--- NOTE | 2018-12-29 05:01 | NUR ---
PT SLEPT PAST 280 UNTIL [phone]
[2018-12-29 07:46] VITALS: BP 122/63
--- NOTE | 2018-12-29 08:15 | NUR ---
Treatment Plan meeting with Dr. Whitfield, RN, AT, SW and Package Dyeing Machine Operator. Plan for discharge /Thursday. Pt. will return to [facility] at discharge.
--- NOTE | 2018-12-29 11:34 | NUR ---
AM GROUP/ENNEAGRAM PT ATTENDED AND PARTICIPATED IN ALL GROUP ACTIVITIES. PT EXPRESSED NO SUICIDAL IDEATIONS WHILE IN GROUP. PT WAS PLEASANT AND TALKATIVE WITH PEERS AND STAFF.
--- NOTE | 2018-12-29 11:42 | NUR ---
Clinical Updates faxed to [facility].
--- NOTE | 2018-12-29 14:21 | NUR ---
PATIENT IS ALERT AND ORIENT TO PERSON, PLACE, TIME AND SITUATION; ABLE TO VOICE NEEDS. MOOD IS SLIGHTLY DEPRESSED. DENIES ANY HALLUCINATIONS, DELUSIONS, HI/SI OR PAIN. MEDICATION COMPLAINT WITH EDUCATION PROVIDED. Q 15 MINUTE SAFETY CHECKS MAINTAINED. RELEASE OF INFORMATION FORM SIGNED AND SENT TO CIRCUIT BOARD ASSEMBLER. DR. CAT UPDATED ON PATIENT'S CONCERN AND RECORDS BEING REQUESTED. PATIENT IS INTERACTIVE WITH STAFF AND OTHER PATIENTS. PARTICIPATED IN GROUP SESSION. INDEPENDENT WITH ACTIVITIES OF DAILY LIVING, CONTINENT OF BOWEL AND BLADDER. SET UP FOR MEAL, INTAKE ARE GOOD WITH ADEQUATE FLUIDS. CONTINUE TO MONITOR FOR SUICIDAL IDEATIONS; PROVIDE ONE ON ONE TO EXPRESS FEELING. ENCOURAGE PATIENT TO PARTICIPATE IN ACTIVITIES.
--- NOTE | 2018-12-29 15:40 | NUR ---
PM GROUP/MUSIC AND CRAFTS PT ATTENDED AND PARTICIPATED IN ALL GROUP ACTIVITIES. PT EXPRESSED NO SUICIDAL IDEATIONS WHILE IN GROUP. PT WAS TALKATIVE, MAKING JOKES, AND PLEASANT WHILE WORKING ON HER TASK.
--- NOTE | 2018-12-29 17:11 | NUR ---
PATIENT COMPLAINING OF POSTERIOR NECK PAIN, RATING 8/10. PRN EXCEDRINE 2 CAPS PO AT THIS TIME.
--- NOTE | 2018-12-29 18:02 | NUR ---
Shift chart check completed.
--- NOTE | 2018-12-29 18:11 | NUR ---
PATIENT STATES "I'M STILL HAVING PAIN" BACK MASSAGE AND ICE APPLIED TO AREA. CONTINUE TO MONITOR.
[2018-12-29 19:13] VITALS: BP 126/70
--- NOTE | 2018-12-29 22:01 | NUR ---
Patient alert and oriented x 4. Patient denies SI/HI and also hallucinations at this time. No signs of any responding to internal stimuli noted. Patient compliant with medications without any difficulty. Provided 1:1 for emotional support. Patient sitting in diningroom with other patients during snack time. Patient interactive with both staff and other patients. Plan to continue to encourage medication compliance and continue to provide emotional support. Also continue to encourage participation in groups and interaction with staff and other patients. Q 15 minute safety checks continued and maintained. See [facility] flowsheet for further documentation.
--- NOTE | 2018-12-30 00:01 | NUR ---
Pt placed on 15/8 BiPap and FiO2 of 30%. Alarms on and audible.
--- NOTE | 2018-12-30 00:34 | NUR ---
24 HR chart check completed.
--- NOTE | 2018-12-30 05:35 | NUR ---
Patient slept approx. 5 hours throughout shift. Q 15 minute safety checks continued and maintained.
--- NOTE | 2018-12-30 06:13 | NUR ---
Dr. Almeida notified of patient's c/o sore throat and awaiting new orders.
[2018-12-30 09:30] VITALS: BP 119/64
--- NOTE | 2018-12-30 09:30 | NUR ---
Treatment Plan meeting with Dr. Whitfield, RN, AT, and Machine Room Operator. Plan for discharge Thursday with return to [facility].
--- NOTE | 2018-12-30 11:08 | NUR ---
PT C/O NECK PAIN. SCORED AN 8 ON A PAIN SCALE OF 0-10. WILL MONITOR EFFECTIVENESS OF MEDICATION.
--- NOTE | 2018-12-30 11:38 | NUR ---
AM GROUP/WORD FIND PT ATTENDED AND PARTICIPATED IN ALL GROUP ACTIVITIES. PT EXPRESSED NO SUICIDAL IDEATIONS WHILE IN GROUP.
--- NOTE | 2018-12-30 12:32 | NUR ---
PT STATED HER NECK PAIN IS GONE. TYLENOL EFFECTIVE AT THIS TIME.
--- NOTE | 2018-12-30 13:21 | NUR ---
Met with pt this AM. Pt asked about possibly transitioning to an assisted living. Explained to pt that this would be a process and that this typewriter mechanic would contact [facility] to further discuss with their social psychologist. It was also discussed in treatment team that pt would like Dr Whitfield to follow her at [facility]. Confirmed this with pt. After meeting with pt, this typewriter mechanic phoned [facility] and left a message for Jeanne the social psychologist requesting a return call to further discuss the above named topics.
--- NOTE | 2018-12-30 15:39 | NUR ---
PM GROUP/OWLS PT ATTENDED AND PARTICIPATED IN ALL GROUP ACTIVITIES. PT WAS JOVIAL AND ON TASK. PT EXPRESSED NO SUICIDAL IDEATIONS WHILE IN GROUP.
--- NOTE | 2018-12-30 18:07 | NUR ---
A&O X4. STABLE MOOD. DENIES HALLUCINATIONS, DELUSIONS, SI, AND HI. INTERACTIVE, PARTICIPATING. MEDICATION COMPLIANT WITHOUT COMPLICATION. EDUCATION PROVIDED WITH VERBALIZATION OF UNDERSTANDING. MEDICATIONS REVIEWED AND ARE CORRECT. SEE [facility] FLOWSHEET FOR SPECIFIC MONITORING.
[2018-12-30 19:30] VITALS: BP 107/69
--- NOTE | 2018-12-30 23:00 | NUR ---
P-DEPRESSED MOOD. PATIENT ALERT AND ORIENTED. PATIENT WITH NO RESPIRATORY DISTRESS AT THIS TIME. PATIENT WITH BIPAP ON AT HS. PATIENT WITH NO HALLUCINATIONS OR DELUSIONS. PATIENT WITH NO SUICIDAL OR HOMICIDAL IDEATIONS AT THIS TIME. I-REDIRECTION WITH 1:1 THERAPEUTIC INTERVENTIONS. EDUCATE AND ENCOURAGE MEDICATION COMPLIANCE. R-PATIENT REFUSED METAMUCIL AND MIRALAX AT HS. PATIENT AMBULATING IN ROOM WITH STEADY GAIT AND WITH NO ASSISTIVE DEVICE. PATIENT PROVIDED NOURISHMENT AND FLUIDS AT HS. PATIENT STATING "I DON'T THINK I'M READY TO GO HOME TOMORROW. DR LEBRON SAID I CAN WAIT UNTIL [place] IF I WANTED. PATIENT VERBALIZING "I FEEL BETTER THAN WHAT I DID WHEN I CAME HERE THOUGH". P-CONTINUE TO ENCOURAGE MEDICATION COMPLIANCE, ENCOURAGE GROUP THERAPY WHILE AWAKE
--- NOTE | 2018-12-31 05:44 | NUR ---
PATIENT SLEPT 5 HOURS OF INTERRUPTED SLEEP THROUGHOUT SHIFT. Q 15 MINUTE CHECKS MAINTAINED. 24 HR chart check completed.
[2018-12-31 07:43] VITALS: BP 108/70
--- NOTE | 2018-12-31 07:54 | NUR ---
Patient resting quietly with no c/o discomfort. Respirations easy and regular. Vital signs stable. No overt distress. GIVENS,WILBERTO
--- NOTE | 2018-12-31 08:15 | NUR ---
Treatment Plan meeting with Dr. Whitfield, RN, AT, SW and Airways Control Specialist. Plan for discharge Thursday. Pt. will return to [facility] at discharge.
--- NOTE | 2018-12-31 08:45 | NUR ---
DR CAT ON UNIT TO ASSESS PT. ASKED DR TO LOOK AT PT NORCO THAT HE CONTINUED YESTERDAY. STATED HE WILL LOOK AT THE ORDER AND FIX IT.
--- NOTE | 2018-12-31 09:40 | NUR ---
PT C/O NECK PAIN. PT REQUESTED TYLENOL AT THIS TIME. TYLENOL GIVEN PER PRN ORDER. WILL MONITOR EFFECTIVENESS OF MEDICATION.
--- NOTE | 2018-12-31 10:08 | NUR ---
Group discussion this AM about support systems. Patients led conversation to pets as support. Pt shared about her two cats that she had until recently. She also spoke of her neighbors as support and the neighbor's dog making her feel better when the dog is around her. Pt also shared about her home health services. Pt was pleasant and per self-report, feeling much better. Pt denies suicidal ideations. She stated that she feels ready for discharge on Thursday and "wants to try living again." During discussion, pt mentioned that she felt she had too many hour of home care. Pt agreed to this instructional writer contacting her supervisor case loading to discuss pt's thoughts about her hours of care.
--- NOTE | 2018-12-31 10:21 | NUR ---
Spoke to pt's [facility] case worker Radha Twin ([phone]). Discussed pt's concern that she had too many hours of home health services. Radha stated that pt had made a comment previously about this. Radha plans on contacting the agency providing the services and also talk with the patient when she returns home to find an agreeable amount of hours for home care services. Informed pt of this conversation.
--- NOTE | 2018-12-31 10:40 | NUR ---
PRN TYLENOL EFFECTIVE. WILL CONTINUE TO MONITOR EFFECTIVENESS OF MEDICATION.
--- NOTE | 2018-12-31 10:42 | NUR ---
Group discussion this AM about support systems. Patients led conversation to pets as support. Pt shared about birds as pets and about a lizard that she had as a pet. Pt also spoke of her sister as a support. Pt was pleasant and supportive of her peers during conversation.
--- NOTE | 2018-12-31 11:36 | NUR ---
AM GROUP PT ATTENDED AND PARTICIPATED IN MORNING GROUP THERAPY BY COLORING AND SOCIALIZING WITH NURSING STUDENTS. PT EXPRESSED NO SUICIDAL IDEATIONS WHILE IN GROUP.
--- NOTE | 2018-12-31 13:44 | NUR ---
1400 NORCO HELD DUE TO GIVING PT A PRN NORCO AT 1200.
--- NOTE | 2018-12-31 14:10 | NUR ---
P: PREOCCUPIED WITH MEDICATIONS I: PROVIDED 1:1 FOR THERAPEUTIC COMMUNICATION. ENCOURAGE MEDICATION COMPLIANCE. MONITOR BEHAVIORS WITH Q15 MINUTE SAFETY CHECKS. ENCOURAGED PT TO ATTEND GROUP. R: PT INTERMITTENTLY PREOCCUPIED WITH MEDICATIONS. P: CONTINUE TO PROVIDE 1:1 FOR THERAPEUTIC COMMUNICATION, ENCOURAGE MEDICATION COMPLIANCE, PROVIDE MEDICATION EDUCATION NEEDED, MONITOR BEHAVIORS WITH Q15 MINUTE SAFETY CHECKS. CONTINUE TO ENCOURAGE ATTENDANCE AND PARTICIPATION IN GROUP. SEE [facility] FLOWSHEET FOR SPECIFIC MONITORING.
--- NOTE | 2018-12-31 15:34 | NUR ---
PM GROUP/MOVIE PT DID NOT ATTEND AFTERNOON GROUP THERAPY. PT WAS IN BED NAPPING
--- NOTE | 2018-12-31 17:41 | NUR ---
PT C/O A RASH ON HER ARMS. AREAS WERE NOTICABLY RED. NO EDEMA NOTED. DENIED PAIN. DR ZIMMERMAN UPDATED ON PT CONDITION AND DR STATED HE WOULD REORDER PT'S CORTISONE CREAM THAT WAS ON HER HOME MEDICATIONS.
[2018-12-31 19:55] VITALS: BP 112/78
--- NOTE | 2018-12-31 23:53 | NUR ---
P-DEPRESSED MOOD, ACCUSATORY. PATIENT ALERT AND ORIENTED. PATIENT WITH NO RESPIRATORY DISTRESS AT THIS TIME. PATIENT WITH BIPAP ON AT HS. PATIENT WITH NO HALLUCINATIONS OR DELUSIONS. PATIENT WITH NO SUICIDAL OR HOMICIDAL IDEATIONS AT THIS TIME. I-REDIRECTION WITH 1:1 THERAPEUTIC INTERVENTIONS. EDUCATE AND ENCOURAGE MEDICATION COMPLIANCE. R-PATIENT MEDICATION COMPLIANT. PATIENT AMBULATING IN ROOM WITH STEADY GAIT AND WITH NO ASSISTIVE DEVICE. PATIENT PROVIDED NOURISHMENT AND FLUIDS AT HS. PATIENT STATING "I SMELL THAT SMELL". PATIENT COUGHING IN DINING AREA AFTER DISINFECTANT WIPES WERE OPEN. PATIENT STATING "YOU GUYS WITH ALL YOUR SMELLS ARE MAKING IT HARD TO BREATH. I KNOW SOMEONE HAS A FLORAL SCENT THEY USE AND IT MAKES IT HARD TO BREATH. NURSING STAFF REMINDED NOT USE DISINFECTANT WIPES IN DINING AT THIS TIME. PATIENT MOVED BOWELS X 1 THIS SHIFT AT THIS TIME P-CONTINUE TO ENCOURAGE MEDICATION COMPLIANCE, ENCOURAGE GROUP THERAPY WHILE AWAKE
--- NOTE | 2019-01-01 00:52 | NUR ---
24 HR chart check completed.
--- NOTE | 2019-01-01 06:23 | NUR ---
PATIENT SLEPT 7 HOURS OF UNINTERRUPTED SLEEP THROUGHOUT SHIFT. Q 15 MINUTE CHECKS MAINTAINED
--- NOTE | 2019-01-01 07:26 | NUR ---
Patient resting quietly with no c/o discomfort. Respirations easy and regular. Vital signs stable. No overt distress. GIVENS,WILBERTO
[2019-01-01 07:54] VITALS: BP 125/77
--- NOTE | 2019-01-01 10:23 | NUR ---
DR CAT ON UNIT TO ASSESS PT.
--- NOTE | 2019-01-01 10:33 | NUR ---
P: PREOCCUPIED WITH MEDICATIONS. PT QUESTIONING MEDICATIONS, PIMARILY NITRO. I: PROVIDED 1:1 FOR THERAPEUTIC COMMUNICATION. ENCOURAGE MEDICATION COMPLIANCE. MONITOR BEHAVIORS WITH Q15 MINUTE SAFETY CHECKS. ENCOURAGED PT TO ATTEND GROUP. R: PT INTERMITTENTLY PREOCCUPIED WITH MEDICATIONS.PT A&O X4. STABLE MOOD. DENIED HI/SI AND HALLUCINATIONS. NO DELUSIONS NOTED. PT UPSET OVER HER NITRO ORDER ON HOLD. DENIES CHEST PAIN AT THIS TIME. VS WNL. PT ATTENDED AND PARTICIPATED IN GROUP. P: CONTINUE TO PROVIDE 1:1 FOR THERAPEUTIC COMMUNICATION, ENCOURAGE MEDICATION COMPLIANCE, PROVIDE MEDICATION EDUCATION NEEDED, MONITOR BEHAVIORS WITH Q15 MINUTE SAFETY CHECKS. CONTINUE TO ENCOURAGE ATTENDANCE AND PARTICIPATION IN GROUP. SEE [facility] FLOWSHEET FOR SPECIFIC MONITORING.
--- NOTE | 2019-01-01 11:41 | NUR ---
P: ISOLATIVE TO ROOM AND WITHDRAWN TO SELF I: PROVIDED 1:1 FOR THERAPEUTIC COMMUNICATION. ENCOURAGE MEDICATION COMPLIANCE. MONITOR BEHAVIORS WITH Q15 MINUTE SAFETY CHECKS. ENCOURAGED PT TO ATTEND GROUP. R: APPETITE GOOD. STEADY GAIT. DENIES HI/SI. DENIES HALLUCINATIONS. NO DELUSIONS NOTED. PT ATTENDED GROUP. MEDICATION COMPLIANT WITHOUT DIFFICULTY. P: PROVIDE 1:1 FOR THERAPEUTIC COMMUNICATION, ENCOURAGE MEDICATION COMPLIANCE, PROVIDE MEDICATION EDUCATION NEEDED, MONITOR BEHAVIORS WITH Q15 MINUTE SAFETY CHECKS. CONTINUE TO ENCOURAGE ATTENDANCE AND PARTICIPATION IN GROUP. SEE [facility] FLOWSHEET FOR SPECIFIC MONITORING.
--- NOTE | 2019-01-01 12:09 | NUR ---
AM GROUP PT ATTENDED AND PARTICIPATED IN GROUP. PT PLEASANT AND ON TASK WITH NO S.I. OR HALLUCNIATIONS EXPRESSED AT THIS TIME. PT WILL CONTINUE TO ATTEND AND PARTICIPATE IN FUTURE GROUP ACTIVITYS.
--- NOTE | 2019-01-01 15:34 | NUR ---
PM GROUP/LEISURE SKILLS PT CHOSE NOT TO ATTEND BUT TO STAY IN BED RESTING AT THIS TIME. PT WILL CONITNUE TO BE ENCOURAGED TO ATTEND AND PARTICIPATE IN FUTURE RGOUP SESSIONS.
[2019-01-01 19:56] VITALS: BP 109/89; BP 92/51
--- NOTE | 2019-01-01 21:39 | NUR ---
PLACED PATIENT ON BIPAP FOR HS
--- NOTE | 2019-01-01 22:23 | NUR ---
P- PREOCCUPIED WITH MEDICATIONS. MOOD IRRITABLE. I- ASSESS MOOD, ORIENTATION, SI/HI, HALLUCINATIONS, DELUSIONS OR PAIN. PROVIDE MEDICATIONS ON TIME WITH EDUCATION ON EACH. 1:1 THERAPEUTIC INTERACTION WITH EMOTIONAL SUPPORT AND VENTILATION OF FEELINGS PROVIDED. R- ALERT AND ORIENTED X4. MOOD IRRITABLE. DENIES SI/HI, HALLUCINATIONS OR PAIN. NO S/S OF INTERACTING WITH INTERNAL STIMULI. NO DELUSIONAL THOUGHT PROCESS NOTED. NO S/S OF DISTRESS NOTED. RESPS EVEN AND UNLABORED ON ROOM AIR. MEDICATION COMPLIANT. GAIT STEADY WHILE AMBULATING. MAKES NEEDS KNOWN. ATE HS SNACK. PT INTERACTIVE WITH PEERS AND STAFF. COLORING IN THE DINING ROOM. PT ASKED IF HER TOPICAL NITRO WAS STILL NEEDED, INFORMED PT THAT IT STILL IS ONLY PRN. PT BECAME IRRITABLE AT THIS TIME AND STATED "WHATEVER". WHEN PROVIDE 1:1 THERAPEUTIC INTERACTION, PT STATED "I AM JUST GOING TO BED. CALL RESPIRATORY TO GET MY BIPAP". PT WENT TO HER ROOM AT THIS TIME. REFUSED EMOTIONAL SUPPORT/EDUCATION. P- ASSESS MOOD, ORIENTATION, SI/HI, HALLUCINATIONS, DELUSIONS OR PAIN EVERY SHIFT. PROVIDE MEDICATIONS ON TIME WITH EDUCATION ON EACH. 1:1 THERAPEUTIC INTERACTION WITH EMOTIONAL SUPPORT AND VENTILATION OF FEELINGS PROVIDED WHEN NECESSARY. Q15 MINUTE CHECKS MAINTAINED FOR SAFETY.
--- NOTE | 2019-01-01 23:38 | NUR ---
24 HR chart check completed.
--- NOTE | 2019-01-02 05:30 | NUR ---
PT MONITORED ON Q15 MINUTE SAFETY CHECKS THROUGHOUT THE NIGHT. PT NOTED TO HAVE SLEPT APPROXIMATELY 5 HOURS THROUGHOUT THE NIGHT. A COUPLE BRIEF AWAKENINGS.
[2019-01-02 07:53] VITALS: BP 113/59
--- NOTE | 2019-01-02 09:06 | NUR ---
Patient resting quietly with no c/o discomfort. Respirations easy and regular. Vital signs stable. No overt distress. GIVENS,WILBERTO
--- NOTE | 2019-01-02 12:36 | NUR ---
AM GROUP/AFFIRMATIONS/MUSIC PT ATTENDED AND PARTICIPATED IN ALL ACTIVITIES. PT PLEASANT MOST OF GROUP, BUT DID BECOME AGITATED WITH A RESIDENT OVER MEDICATIONS. PT WAS ABLE TO CALM DOWN AND GET BACK ON TASK. PT DID NOT EXPRESS ANY HALLUCINATIONS OR S.I. AT THIS TIME AND WILL CONTINUE TO ATTEND AND PARTICIPATE IN FUTURE GROUP SESSIONS.
[2019-01-02 20:00] VITALS: BP 113/59
--- NOTE | 2019-01-02 23:13 | NUR ---
PLEASANT COOPERATIVE WITH MEDICATIONS. PT STATES SHE HAS NO SI/HI OR DELUSIONS NOTED. PT CONTINUES TO BE CONCERNED IN REFERENCE TO HER CARDIAC MEDICATIONS AND THAT SHE WISHES THEY WOULD HAVE LEFT THEM ALONE. SPOKE WITH PT IN REFERENCE TO HER BLOOD PRESSURES AND THAT THE DOCTORS MADE THE CHOICE BECAUSE OF A TRACKED HISTORY. 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 CONTINUED TO BE PLEASANT WITH THIS NURSE IN REFERENCE TO ALL ASPECTS OF CARE. PT RESTING QUIESTLY AT THIS TIME BIPAP INTACT. MONITOR 15 MIN CHECKS
--- NOTE | 2019-01-03 04:40 | NUR ---
24 HR chart check completed.
--- NOTE | 2019-01-03 06:24 | NUR ---
PT SLEPT FROM 1999 WITH SHORT AWAKENINGS DUE TO BIPAP AND TOILETING NEEDS
[2019-01-03 08:07] VITALS: BP 108/54
--- NOTE | 2019-01-03 08:32 | NUR ---
SPOKE WITH DR. COBB RE: PT DISCHARGE SCHEDULED FOR 11AM TODAY AND MEDICAL MEDS NEEDING COMPLETED.
--- NOTE | 2019-01-03 08:38 | NUR ---
Treatment Plan meeting with Dr. Whitfield RN, AT, SW and Author'S Agent. Plan for discharge today. Pt. to return to [facility].
[2019-01-03] MEDS ORDERED: LATU80TA PO (08:39)
[2019-01-03] MEDS ORDERED: BENZTROPINE MESY1 MG PO (08:39)
[2019-01-03] MEDS ORDERED: DULOXETINE HCL60 MG PO (08:39)
--- NOTE | 2019-01-03 09:15 | NUR ---
DR. CARRASCO ON UNIT TO ASSESS PATIENT.
--- NOTE | 2019-01-03 10:20 | NUR ---
PATIENT IS ALERT AND ORIENTED X 4; ABLE TO VOICE NEEDS. MOOD IS STABLE, SAD T0DAY D/T DISCHARGE. DENIES ANY HALLUCINATIONS, DELUSIONS, HI/SI OR PAIN. INTERACTIVE WITH STAFF AND OTHER PATIENTS. PARTICIPATES IN GROUP SESSION. INDEPENDENT WITH ACTIVITIES OF DAILY LIVING, CONTINENT OF BOWEL AND BLADDER. SET UP FOR MEALS, INTAKES ARE GOOD WITH ADEQUATE FLUIDS. AMBULATORY WITH STEADY GAIT. CONTINUE TO MONITOR FOR SUCIDAL IDEATIONS, PROVIDE ONE ON ONE FOR EMOTIONALS SUPPORT AND REDIRECT NEEDED.
--- NOTE | 2019-01-03 10:23 | NUR ---
Transportation arranged with [facility] to transport with pickle pumper time 4:30 Nursing Staff RUST notified. Spoke with Jeanne at [facility] and notified of discharge today and pickle pumper time. Discharge Paperwork faxed to Josh.
--- NOTE | 2019-01-03 10:38 | NUR ---
Met with pt indvidually this AM. Discussed pt's mood and readiness for discharge. Discussed Dr Whitfield following pt at [place]. Also discussed pt transitioning to an assisted living, which was the recommendation from her recent Resident Review determination.
--- NOTE | 2019-01-03 10:40 | NUR ---
Patient is discharging today to [facility]. Follow-up will be with visiting psychiatrist Dr Derick Whitfield. While at [facility], pt's mood improved. Pt is future-oriented voicing hope for transitioning into an assisted living. While at [facility], pt participated in programming and was pleasant and suppotive of her peers.
--- NOTE | 2019-01-03 11:33 | NUR ---
AM GROUP PT ATTENDED AND PARTICIPATED IN ALL GROUP ACTIVITIES. PT EXPRESSED NO SUICIDAL IDEATIONS WHILE IN GROUP AND IS LOOKING FORWARD TO BEING DISCHARGED FROM THE UNIT THIS AFTERNOON.
--- NOTE | 2019-01-03 14:30 | NUR ---
PATIENT COMPLAINING OF HAVING DIARRHEA. DR. COBB NOTIFIED. NEW ORDERS IN PLACE. IMMODIUM 2MG GIVEN PO.
--- NOTE | 2019-01-03 15:30 | NUR ---
NURSE TO NURSE REPORT GIVEN TO TIA AT [facility].
--- NOTE | 2019-01-03 15:37 | NUR ---
PM GROUP PT ATTENDED AND PARTICIPATED IN ALL GROUP ACTIVITIES. PT IS SET TO BE DISCHARGED FROM THE UNIT THIS AFTERNOON
--- NOTE | 2019-01-03 16:58 | NUR ---
PATIENT REVIEWED AND SIGNED ALL DISCHARGE INSTRUCTIONS. ASI SERVICES PRESENT. PATIENT ASSISTED TO MADHU. ALL BELONGING AND DISCHARGE INSTRUCTION SENT WITH PATIENT OFF UNIT.
== END 2019-01-03 17:30 | DRG 753 ==
LOC: 3N 16:01
PROVIDERS: Nurse Practitioner Women's Health; ADMIT Psychiatry & Neurology Psychiatry
DX: F31.9 Bipolar disorder, unspecified (principal); R45.851 Suicidal ideations; J44.9 Chronic obstructive pulmonary disease, unspecified; K25.9 Gastric ulcer, unspecified as acute or chronic, without hemorrhage or perforation; I25.10 Atherosclerotic heart disease of native coronary artery without angina pectoris; K21.9 Gastro-esophageal reflux disease without esophagitis; E78.5 Hyperlipidemia, unspecified; I10 Essential (primary) hypertension; E55.9 Vitamin D deficiency, unspecified; E03.9 Hypothyroidism, unspecified; G40.909 Epilepsy, unspecified, not intractable, without status epilepticus; I50.9 Heart failure, unspecified; G89.4 Chronic pain syndrome; G62.9 Polyneuropathy, unspecified; Z99.81 Dependence on supplemental oxygen; Z79.899 Other long term (current) drug therapy; Z90.49 Acquired absence of other specified parts of digestive tract

== ENCOUNTER 2019-08-10 15:26 | Inpatient (IN) | payer MEDICAID ==
[~2019-08-10] VITALS: Ht 152.4 cm; Wt 132.9 kg
--- NOTE | 2019-08-10 15:23 | NUR ---
HUMA MILLER a 59 year old F admitted via stretcher from the ADMITTING as a voluntary admission. Arrived on unit at 1523. ALLERGIES: NKA. Vital signs are: 98.2-64-18 105/80. The client signed the following forms with stated understanding: Authorization For The Release of Medical Information, Clothing List, Consent to Voluntary Admission and Hospitalization, Consent and Release Forms/Receipt of Rights, Acknowledgement of Advance Directive Information, Behavioral Health Consent Form, and Informed Consent of Medications. Admitted under the services of Dr. VI GOMESJAZMINE. A search was conducted and hazardous articles were removed. Client was oriented to the unit. NAHEED ZEE
[~2019-08-10 15:26] MED LIST changes: +BENZTROPINE MESY1 MG PO; +BUSPAR5 MG PO; +CELEXA20 MG PO; +CLARITIN10 MG PO; +COGENTIN0.5 MG PO; +COLACE100 MG PO; +EXCEDRIN MIGRA1 EAC1 PO; +FLUOCINONIDE-E15 GM T; +MELATONIN10 M4 PO; +METOPROLOL SUCC25 M2 PO; +MOVANTIK25 MG PO; +NITRO-BID1 GM T; +PEPCID40 MG PO; +PROAIR HFA8.5 GM INH; +SALINE NASAL14.1 GM NAS; +VITAMIN E400 UNI2 PO; +XOPENEX0.31 MG/3 NEB
[2019-08-10] MEDS ORDERED: BIPAP (16:31)
[2019-08-10] MEDS ORDERED: BENZONATATE100 M1 PO (16:31)
[2019-08-10] MEDS ORDERED: VITAMIN D3125 MC1 PO (16:36)
[2019-08-10] MEDS ORDERED: HORIZANT300 M1 PO (16:37)
[2019-08-10] MEDS ORDERED: PROCTOZONE-HC30 GM R (16:38)
[2019-08-10] MEDS ORDERED: MELATONIN 1 MG1 EACH PO (16:39)
[2019-08-10] MEDS ORDERED: GAVILAX17 GM PO (16:41)
[2019-08-10] MEDS ORDERED: PHAZYME180 MG PO (16:42)
[2019-08-10] MEDS ORDERED: TRAMADOL HCL50 MG PO (16:43)
[2019-08-10] MEDS ORDERED: VISTARIL25 MG PO (16:44)
[2019-08-10] MEDS ORDERED: VESICARE10 MG PO (16:44)
--- NOTE | 2019-08-10 17:30 | NUR ---
DR. ROBLERO NOTIFIED OF NEW ADMISSION. STATED TO PUT CONSULT UNDER DR. CAT.
[2019-08-10 17:39] VITALS: BP 105/80
--- NOTE | 2019-08-10 19:58 | NUR ---
VEGETABLE TRIMMER UPDATED ABOUT ADMISSION TIME, VOLUNTARY STATUS, AND ADMITTING DIAGNOSIS AND WILL BE IN TO SEE TOMORROW
[2019-08-10 20:00] VITALS: BP 133/88
--- NOTE | 2019-08-10 23:26 | NUR ---
DR THOMAS NOTIFIED OF PATIENT SKIN ASSESSMENT. DR THOMAS AWARE OF LEFT ABDOMINAL FOLD OPEN AND REDDENED AND RASH TO RIGHT FOREARM THAT PATIENT REPORTS IS FROM A HISTORY [place] AND RAN OUT OF MEDICATION ABOUT A WEEK AGO. WAITING ON ORDERS AT THIS TIME. PATIENT ALSO WITH BILATERAL UPPER EXTREMITY BRUISING AT VARIOUS STAGES OF HEALING. PATIENT WITH BRUISING TO LEFT POSTERIOR UPPER LEG AND SCATTERED SCABS THAT PATIENT REPORTS IS FROM A TOILET SEAT HITTING THE BACK OF THE LEFT LEG AT HER FACILITY
--- NOTE | 2019-08-11 02:34 | NUR ---
PATIENT ALERT AND ORIENTED. PATIENT WITH NO SHORT TERM OR INTERMEDIATE MEMORY DEFICITS. PATIENT CONTINUES ON O2 AT 3L VIA NASAL CANNULA. PATIENT WEARING OWN BIPAP WITH HOME SETTINGS AT . PATIENT MEDICATION COMPLIANT. THERAPEUTIC INTERVENTIONS AND COMMUNICATION PROVIDED THIS SHIFT. PATIENT WITH NO HALLUCINATIONS OR DELUSIONS. PATIENT WITH NO HOMICIDAL IDEATIONS AND DENIES SUICIDAL IDEATIONS AT THIS TIME. PATIENT PROVIDED ZIP TIES FOR SHOES AND SHOE STRINGS REMOVED.
--- NOTE | 2019-08-11 06:34 | NUR ---
HUMA MILLER [id number] Please refer to the physician's history and physical for past medical history, comorbid conditions, and allergies. Diagnosis: MAJOR DEPRESSION RECURRENT SEVERE Fabian Score: 19,AT RISK WOUND DESCRIPTIONS: Wound Number: 1 Location of the wound: left abdominal fold Thickness: Partial Size: 0.2cm x 3.0cm x 0.1cm Tunneling: none Undermining: none Sinus Tract: none Presence of Exudate: none Amount: None Color: Red Odor: None Periwound Skin Appearance: Normal Wound edges: approximated Pain (associated with wound): none at time of assessment How does patient state this happened? pt unsure how this happened Wound Number:2 Right arm red and blanchable at time of assessment. Patient states has eczema and was getting treatment before coming here. Surface the patient is resting on: Proform SKIN PREVENTION RECOMMENDATION: 1. Pressure redistribution support surface as appropriate 2. Elevate heels 3. Remove boots/TEDS every shift and reapply 4. Head of bed 30 degrees as tolerated 5. Assess nutrition and hydration 6. Manage moisture 7. Avoid the use of containment devices while in bed 8. Use absorptive products on surfaces limit layers of linens on bed 9. Turn and reposition every 1-2 hours in bed and every 1 hour in chair as tolerated 10. Weight shifts every 15 minutes while up in chair 11. Offloading with pillows or device to keep heels elevated off bed 12. Monitor skin at least every shift 13. Inspect under medical devices twice a day WOUND TREATMENT RECOMMENDATIONS: Cleanse right arm with soap and water apply aquaphor ointment bid D/C partial thickness guidelines Cleanse left abdominal fold with soap and water pat area dry then apply nystatin powder every 12 hours.
[2019-08-11 06:54] LABS: BASO # 0.1 10*3/uL (0.0-0.1); BASO % 1.1 % (0.0-1.0); EOS # 0.4 10*3/uL (0.0-0.4); EOS % 3.6 % (1.0-4.0); HEMATOCRIT 44.1 % (37.0-47.0); LYMPH # 2.5 10*3/uL (1.3-4.4); LYMPH % 25.1 % (27.0-41.0); MEAN CELL VOLUME 91.7 fl (81.0-99.0); MEAN CORPUSCULAR HGB 28.7 pg (27.0-31.0); MEAN CORPUSCULAR HGB CONC 31.3 g/dl (33.0-37.0); MEAN PLATELET VOLUME 10.9 fl (9.6-12.3); MONO # 0.8 10*3/uL (0.1-1.0); MONO % 8.5 % (3.0-9.0); NEUT # 5.9 10*3/uL (2.3-7.9); NEUT % 60.9 % (47.0-73.0); PLATELET COUNT AUTOMATED 241 10*3/uL (130-400); RED BLOOD COUNT 4.81 10*6/uL (4.10-5.10); RED CELL DISTRI WIDTH 13.3 % (0-14.5); WHITE BLOOD COUNT 9.8 10*3/uL (4.8-10.8)
--- NOTE | 2019-08-11 07:19 | NUR ---
PATIENT SLEPT 6 HOUR OF INTERRUPTED SLEEP THROUGHOUT SHIFT. Q 15 MINUTE CHECKS MAINTAINED. 24 HR chart check completed.
[2019-08-11 07:24] LABS: BUN 16 mg/dl (7-24); CHLORIDE 105 mmol/L (98-107); CHOLESTEROL 176 mg/dL (<200); CREATININE 0.79 mg/dL (0.55-1.02); POTASSIUM 3.4 mmol/L (3.5-5.1); SODIUM 139 mmol/L (136-145)
[2019-08-11 07:34] LABS: HDL CHOLESTEROL 48 mg/dl (40-60); LDL CHOLESTEROL 104 mg/dL (9-159); THYROID STIM HORMONE (HS) 0.285 uIU/ml (0.358-4.75); TRIGLYCERIDES 122 mg/dl (<150); VLDL CHOLESTEROL 24 mg/dL (6-40)
[2019-08-11 07:46] VITALS: BP 100/65
[2019-08-11 08:01] LABS: VITAMIN D, 25-HYDROXY 70.7 ng/mL (30-100)
--- NOTE | 2019-08-11 08:17 | NUR ---
SPEECH PATHOLOGY Nursing screen completed. There are no reports of acute communication or swallowing difficulty therefore services are not indicated at this time. This dept. will be available if future needs arise. MARIA D EVANS MSCCC-POLE SANDER OPERATOR
--- NOTE | 2019-08-11 08:40 | NUR ---
Nursing screen received and chart reviewed. Patient admitted from [facility] for worsening depression. If patient has a decline in ADLs, transfers, or functional mobility past baseline, please send OT orders. Thank you. Kirstin Minor, OTR/L
--- NOTE | 2019-08-11 09:00 | NUR ---
Treatment Plan meeting held this a.m. via telephone with Dr. Nahid RN and Technical System Analyst. Plan for discharge at of next week or Early the Following Week.
--- NOTE | 2019-08-11 10:35 | NUR ---
DR CARRASCO ON UNIT TO ASSESS PT, UPDATE PROVIDED.
--- NOTE | 2019-08-11 10:54 | NUR ---
SPOKE AT LENGTH WITH PT TODAY TO PROVIDE EMOTIONAL SUPPORT. PATIENT EXPRESSES SADNESS AT FACILITY BECAUSE SHE STATES "THE PEOPLE THERE THINK I AM DUMB. I AM NOT DUMB". PT DOES STATE THAT SHE WANTS TO GO BACK THERE BECASUE SHE DOES NOT KNOW IF THE [facility] CAN HELP HER. PT ENCOURAGED TO EXPRESS FEELINGS, STATES THAT SHE NEEDS HELP AND THAT SHE HAS NOT BEEN SLEEPING WELL AT NIGHT, STATING SHE HAS ONLY BEEN GETTING "2-4 HOURS AT NIGHT" PT STATES SHE HAS TROUBLE FALLING ASLEEP AND STAYING ASLEEP. PT BELIEVES THAT THIS IS ONE LARGE CONTRIBUTING FACTOR TO HER DEPRESSED MOOD. EDUCATED PT ON MEDICATIONS, INCLUDING NEW ORDER FOR REMERON AT , WHICH MAY SIMULTANEOUSLY HELP HER DEPRESSION AND INCREASE HER QUALITY OF SLEEP. PT STATES SHE IS READY TO TRY NEW MEDICATIONS. PT ALSO EDUCATED ON TREATMENT PLAN. PT ASKING FOR PHYSICAL THERAPY, MADE AWARE THAT THERAPY SCREENS HAVE BEEN PLACED. BRACE TO RIGHT ANKLE INTACT. PT PROVIDED WITH SNACKS AND FLUID AND ASSISTED TO GROUP ROOM TO WATCH MOVIE WITH PEERS.
--- NOTE | 2019-08-11 12:25 | NUR ---
PHYSICAL THERAPY Screen recieved pt is LTC resident at [facility]. Pt evaluated last year on BHU by PT/OT using R AFO 12/25 where she was found to be stand by assist for amb at the HR in [facility]. Pt was able to don AFO w only help to adjut upper strap. Pt has used R AFO on BHU in the past as noted above. Please consult PT if pt has had a decline or change in functional status from baseline as noted above. Monica Wu PT
--- NOTE | 2019-08-11 12:40 | NUR ---
Nutritional Support Services Note: Appeitte is good for meals. Left abdominal fold wound. Continue to encourage good intake of meals and snacks. Encourage fluids. Will follow if needed. No nutrition intervention needed at this time. Magaly Jensen Rdn Ld
--- NOTE | 2019-08-11 13:52 | NUR ---
PSYCHOSOCIAL HX COMPLETED THIS DATE.
--- NOTE | 2019-08-11 17:21 | NUR ---
PT C/O BACK PAIN RATED 8/10, PT MEDICATED WITH PRN NORCO PER ORDERS, WILL CONTINUE TO MONITOR.
[2019-08-11 20:00] VITALS: BP 101/62
--- NOTE | 2019-08-11 21:02 | NUR ---
P--DEPRESSION, GUARDED, ANXIETY I--REVIEWED ALL MEDICATIONS PRIOR TO GIVING TO CLIENT. NOT INTERESTED IN CONVERSATION SHE IS WATCHING A MOVIE. CHECKED SCALP FOR ITCHING. DRYNESS FOUND. ENCOURAGED CONDITIONER DURING SHOWER. R--I AM OK. TODAY WAS SO SO/ DURING 2ND MOVIE CLIENT INTERACTED WITH STAFF DISCUSSING ITCHING, MEDICATION, LAUGHING AND INTERACTING P--MONITOR FOR CHANGES IN BEHAVIOR/MOOD. MONITOR Q 15 MINUTES AND PRN FOR SAFETY.
--- NOTE | 2019-08-12 02:29 | NUR ---
24 HR chart check completed.
--- NOTE | 2019-08-12 06:35 | NUR ---
EASILY AWAKENED FOR AM MEDICATIONS. REFUSES TO WEAR BIPAP OR NASAL CANULA AT THIS TIME
--- NOTE | 2019-08-12 06:36 | NUR ---
EASILY AWAKENED FOR AM MEDICATIONS. REFUSES TO WEAR BIPAP OR NASAL CANULA AT THIS TIME
[2019-08-12 07:34] VITALS: BP 112/66
--- NOTE | 2019-08-12 08:30 | NUR ---
Treatment Plan meeting was held with CAROLS Gonzalez RN and Data Report Analyst. Plan for discharge Next week. Pt. came to [facility] from [place]. Will again attempt to reach SW at facility to discuss discharge Planning.
--- NOTE | 2019-08-12 09:45 | NUR ---
Spoke with Leigha the Field Care Manager at [facility]. 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 Leigha states that she has been looking for a facility for Pt. that is able to manage behaviors. Leigha states that no matter what patient trys she continues to have behavior with Suicidal Ideations and Hearing voices. Clinical Liason at [facility] has been looking into alternate placement for Pt. Clinical Updates faxed to [facility].
--- NOTE | 2019-08-12 10:22 | NUR ---
DR SARAH ON UNIT TO ASSESS PT, UPDATE PROVIDED.
--- NOTE | 2019-08-12 10:53 | NUR ---
AM GROUP PT WAS PRESENT FOR PAINTING AND CRAFTING, ACTIVELY PARTICIPATED.
--- NOTE | 2019-08-12 11:20 | NUR ---
Clinical Updates faxed to [facility] Attn: Leigha [phone].
--- NOTE | 2019-08-12 14:17 | NUR ---
PT C/O BACK PAIN RATED "10/10". PT REQUESTING PRN NORCO AND BIOFREEZE SHE STATES "I HAD THAT BIOFREEZE LAST TIME I WAS HERE AND IT HELPED". DR. WEBER MADE AWARE OF PT REQUEST, N.O. RECEIVED. PRN NORCO ADMINISTERED AT THIS TIME PER PRN ORDER.
--- NOTE | 2019-08-12 15:20 | NUR ---
PT C/O CHEST PAIN. VS WNL. 97.8 - 85 -18 130/82 100%RA. PT ENCOURAGED TO PUT NASAL CANNULA BACK ON AT 3L/MIN FOR COMFORT. DR. WEBER MADE AWARE OF PT COMPLAINTS AND PT'S REPEATED REQUEST FOR NITRO PATCH THAT SHE RECEIVED AT NURSING FACILITY. DR. WEBER CONFERRED WITH DR. SARAH AND STATES HE WILL PUT ORDER IN FOR NITRO TABS SL. N.O. RECEIVED. ONE NITRO TAB ADMINISTERED AT THIS TIME D/T PT'S CONTINUED C/O CHEST PAIN. PT IS IN DINING ROOM WATCHING MOVIE WITH PEERS. NO OVERT DISTRESS NOTED AT THIS TIME.
--- NOTE | 2019-08-12 16:20 | NUR ---
PT GIVEN THIRD DOSE OF NITRO TAB D/T C/O CHEST PAIN. CONTINUES TO SIT QUIETLY WATCHING MOVIE WITH PEERS.
--- NOTE | 2019-08-12 17:45 | NUR ---
DR. WEBER MADE AWARE OF EKG RESULTS. [facility] AT THIS TIME.
[2019-08-12 20:00] VITALS: BP 122/88
--- NOTE | 2019-08-12 21:01 | NUR ---
CLIENT HEARD PEER ASK ME TO REVIEW ALL CURRENT MEDCATIONS. WHEN I FINISHED CLIENT SAID I WANT TO SEE ALL THE MEDICINES I CAME IN ON I HAVE A QUESTION. I ASKED WHAT QUESTION SHE HAD AND WAS TOLD IT WAS NONE OF MY [employer] BUSINESS AND IT IS HER RIGHT TO HAVE A COPY. I INFORMED HER THAT I WOULD FIND A COPY AND GIVE IT TO HER. SHE CONTINUED YELLING AND ARGUING THAT I CAN'T WITH HOLD HER LIST AND TO GET IT NOW. I REPEATED I AGREED TO GET IT SOON COULD AND SHE CALLED ME A LIAR. ALEX RN WAS IN ROOM AT THE TIME AND HEARD EVERYTHING AND TOLD THE PATIENT AGAIN WHAT I SAID. CLIENT THEN SAID WELL I DIDN'T HEAR IT THAT WAY. COPY OF MEDICATIONS PROVIDED BY THE LONGTERM GIVEN TO HER. HAROLDO APPLIED TO BACK PER REQUEST
--- NOTE | 2019-08-12 21:01 | NUR ---
CLIENT HEARD PEER ASK ME TO REVIEW ALL CURRENT MEDCATIONS. WHEN I FINISHED CLIENT SAID I WANT TO SEE ALL THE MEDICINES I CAME IN ON I HAVE A QUESTION. I ASKED WHAT QUESTION SHE HAD AND WAS TOLD IT WAS NONE OF MY [employer] BUSINESS AND IT IS HER RIGHT TO HAVE A COPY. I INFORMED HER THAT I WOULD FIND A COPY AND GIVE IT TO HER. SHE CONTINUED YELLING AND ARGUING THAT I CAN'T WITH HOLD HER LIST AND TO GET IT NOW. I REPEATED I AGREED TO GET IT SOON COULD AND SHE CALLED ME A LIAR. ALEX RN WAS IN ROOM AT THE TIME AND HEARD EVERYTHING AND TOLD THE PATIENT AGAIN WHAT I SAID. CLIENT THEN SAID WELL I DIDN'T HEAR IT THAT WAY. COPY OF MEDICATIONS PROVIDED BY THE [facility] GIVEN TO HER. HAROLDO APPLIED TO BACK PER REQUEST
--- NOTE | 2019-08-13 00:20 | NUR ---
BLUE GEL APPEARS TO HAVE HELP. CLIENT RESTING QUIET IN BED. 24 HR chart check completed.
--- NOTE | 2019-08-13 05:50 | NUR ---
SLEPT APPROX 7-8 HOURS PAST 2130PM. MOVED SELF AROUND IN ROOM
[2019-08-13 08:00] VITALS: BP 100/62
--- NOTE | 2019-08-13 09:01 | NUR ---
DR LE ON UNIT TO ASSESS PT, UPDATE PROVIDED.
--- NOTE | 2019-08-13 17:20 | NUR ---
A&O X4. STABLE MOOD. INTERACTIVE WITH PEERS AND STAFF. NO HALLUCINATIONS AND DELUSIONS NOTED. NO SI/HI NOTED. NO ADVERSE BEHAVIORS NOTED AT THIS TIME IN THE SHIFT. WILL CONTINUE TO MONITOR BEHAVIORS. SEE [facility] FLOWSHEET FOR SPECIFIC MONITORING.
[2019-08-13 20:00] VITALS: BP 101/63
--- NOTE | 2019-08-13 20:38 | NUR ---
WATCHING TV AND INTERACTIVE WITH STAFF. REVIEWED MEDICATIONS PRIOR TO DISPENSING. MOUTH CHECK COMPLETED. NO S/I ISSUES NOTED. NO ARGUMENTIVE ATTITUDE AT THIS TIME. WILL CONTINUE TO MONITOR FOR CHANGES IN MOOD/BEHAVIOR AND Q 15 MINUTES AND PRN FOR SAFETY.. OXYGEN ON AND REMAINS IN WHEELCHAIR
--- NOTE | 2019-08-13 20:44 | NUR ---
POUNDING ON TABLES. DISTRUPTIVE WITH PEERS. UNABLE TO REDIRECT. REFUSING ALL PO MEDICATIONS. VISTARIL 75MG IM GIVEN. PO VISTARIL WASTED. WILL TRY OTHER MEDICATIONS IF HE RELAXES
--- NOTE | 2019-08-13 20:45 | NUR ---
INTERACTIVE WITH STAFF. WATCHING TV. STATES HAD A GOOD DAY BUT TIRED. REVIEWED MEDICATION PRIOR TO DISPENSING. WILL MONITOR FOR CHANGES IN MOOD/BEHAVIOR AND Q 15 MINUTES AND PRN FOR SAFETY. SNACKS PROVIDED BY STAFF
--- NOTE | 2019-08-13 20:48 | NUR ---
WATCHING TV AND INTERACTIVE WITH STAFF. NO S/I NOTIONS NOTED. REVIEWED ALL MEDICATIONS PRIOR TO DISPENSING. SNACK PROVIDED BY STAFF. NO ARGUMENTIVE BEHAVIOR AT THIS TIME. WILL CONTINUE TO MONITOR FOR CHANGES IN BEHAVIOR/MOOD AND Q15 MINS AND PRN FOR SAFETY
--- NOTE | 2019-08-13 21:45 | NUR ---
CLIENT TOOK CPAP MASK APART AND UNABLE TO FIX. REASSEMBLED AND NOW RESTING
--- NOTE | 2019-08-14 05:52 | NUR ---
SLEPT WELL PAST 2315PM
--- NOTE | 2019-08-14 05:53 | NUR ---
SLEPT WELL PAST 2315PM
[2019-08-14 07:40] VITALS: BP 119/53
--- NOTE | 2019-08-14 10:25 | NUR ---
DR. CAT ON UNIT TO ASSESS PATIENT.
--- NOTE | 2019-08-14 15:03 | NUR ---
PATIENT COMPLAINED OF BACK/NECK PAIN RATING PAIN 8/10. PRN TRAMADOL 50MG PO GIVEN AT THIS TIME.
--- NOTE | 2019-08-14 16:51 | NUR ---
NO ADVERSE MOODS OR BEHAVIORS NOTED THIS SHIFT. SEE [facility] FLOWSHEET FOR SPECIFIC MONITORING.
[2019-08-14 19:44] VITALS: BP 122/50
--- NOTE | 2019-08-15 00:47 | NUR ---
PT HAS BEEN PLEASANT T/O SHIFT. MEDICATION COMPLIANT, INTERACTIVE AND APPROPRIATE. Q 15 MIN MONITORING PER POLICY FOR SAFETY. PT IS RESTING QUIETLY AT THIS TIME.
[2019-08-15 00:52] LABS: BILIRUBIN NEGATIVE (NEGATIVE); CLARITY SL CLOUDY (CLEAR); COLOR YELLOW (YELLOW); GLUCOSE NEGATIVE (NEGATIVE); KETONE NEGATIVE (NEGATIVE)
[2019-08-15 00:53] LABS: BLOOD 1+ (NEGATIVE); LEUKO ESTERASE 2+ (NEGATIVE); NITRITE NEGATIVE (NEGATIVE); SPECIFIC GRAVITY 1.015 (1.005-1.030); UROBILINOGEN 0.2 E.U./dl (0.2-1.0)
[2019-08-15 01:02] LABS: EPITHELIAL CELLS 21-30
[2019-08-15 01:03] LABS: CALCIUM OXALATE CRYSTALS 1+; WBC 16-20 wbc/hpf (0-5)
[2019-08-15 01:04] LABS: BACTERIA TRACE
--- NOTE | 2019-08-15 04:36 | NUR ---
Upon discharge recommend patient to follow up for wound care in outpatient setting continue current wound care orders at discharging facility.
--- NOTE | 2019-08-15 06:05 | NUR ---
PT SLEPT 7 HOURS THIS SHIFT.
[2019-08-15 07:31] VITALS: BP 105/65
--- NOTE | 2019-08-15 09:00 | NUR ---
Treatment Plan meeting was held with Dr. Whitfield, CARLOS Gonzalez, RN, AT, ELECTION JUDGE-S and senior program planner in attendance. Plan for discharge at the end of this week or early next week depending on stability. Pt. will return to [facility].
--- NOTE | 2019-08-15 11:00 | NUR ---
HILARY TOPETE CNP ON UNIT TO ASSESS PATIENT.
--- NOTE | 2019-08-15 12:41 | NUR ---
Clinical Updates faxed to [facility] Attn: Leigha [phone].
--- NOTE | 2019-08-15 13:33 | NUR ---
P: DEPRESSED MOOD, THOUGHT OF SI WITHOUT ACCESS TO OVERDOSE, TEARFUL IN DINING ROOM I: ONE ON ONE FOR EMOTION SUPPORT, ENCOURAGE GROUP PARTICIPATION AND INTERACTIVE WITH STAFF AND OTHER PATIENTS. R: EFFECTIVE. PATIEINT IS ALERT TO PERSON, PLACE, TIME AND SITUATION; ABLE TO VOICE NEEDS. MOOD IS DEPRESSED. DENIES ANY HALLUCINATIONS, DELUSION AND HI; VOICES THOUGHTS OF SI WITHOUT ACCESS TO MEDICATIONS TO OVERDOSE. MEDICATION COMPLAINT WITH EDUCATION. Q 15 MINUTE SAFETY CHECKS MAINTAINED, 1-2 PERSON ASSIST WITH ACTIVITIES OF DAILY LIVING, CONTINENT OF BOWEL AND BLADDER. SET UP FOR MEALS, INTAKES VARY. UP IN WHEEL CHAIR, ABLE TO SELF PROPEL. CONTINUE TO MONITOR FOR SUICIDAL IDEATION, PROVIDE ONE ON ONE FOR EMOTIONAL SUPPORT AND CONTRACT FOR SAFETY NEEDED. P:
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
[2019-08-15 16:04] LABS: BILIRUBIN NEGATIVE (NEGATIVE); BLOOD 2+ (NEGATIVE); CLARITY SL CLOUDY (CLEAR); COLOR YELLOW (YELLOW); GLUCOSE NEGATIVE (NEGATIVE); KETONE NEGATIVE (NEGATIVE)
[2019-08-15 16:05] LABS: BACTERIA 1+; CALCIUM OXALATE CRYSTALS 1+; EPITHELIAL CELLS 21-30; LEUKO ESTERASE 1+ (NEGATIVE); NITRITE NEGATIVE (NEGATIVE); UROBILINOGEN 0.2 E.U./dl (0.2-1.0)
--- NOTE | 2019-08-15 16:53 | NUR ---
THIS AM PT ORDERED MEALS WITH DIETARY STAFF. PT HAS BEEN ORDERING MEALS SUCH 1 SLICE OF CHEESE THEN REQUESTING STAFF TO ORDER THINGS 2 BAGS OF CHIPS. PT STATED SHE IS ON A SPECIAL DIET AND IS ATTEMPTING TO LOSE WEIGHT TO HAVE KNEE SURGERY. THIS RN AND ANOTHER RN SPOKE TO PT REGARDING HER MEAL CHOICES AND PT STATED SHE WILL REFUSE TO EAT. THIS NURSE EXPLAINED TO PT THERE ARE APPROPRIATE THINGS TO ORDER AND CONTINUE TO LOSE WEIGHT SUCH SALADS AND NON FRIED FOODS. PT RAISED VOICE TO THIS NURSE AND STATED SHE KNOWS WHAT SHE CAN EAT AND SHE HAS LOST 60 POUNDS IN 4 MONTHS. THIS NURSE TOLD PT WE CAN HAVE A THERAPEUTIC DIETITIAN COME UP AND SPEAK TO PT REGARDING APPROPRIATE FOODS AND MEALS FOR WEIGHT LOSS. PT RAISED VOICE LOUDER AND STATED I AM NOT GOING TO PUT UP WITH THIS SHIT AND IF YOU ORDER MY FOODS I WILL NOT EAT. THIS NURSE REDIRECTED PT AND ENDED CONVERSATION DUE TO ANXIETY LEVEL OF THE PT. THERAPEUTIC DIETITIAN ORDER PLACED
--- NOTE | 2019-08-15 18:36 | NUR ---
Shift chart check completed.
[2019-08-15 19:27] VITALS: BP 102/79
--- NOTE | 2019-08-15 20:21 | NUR ---
PT C/O PAIN TO BILATERAL KNEES, REQUESTING PRN NORCO. ADMINISTERED PER PRN ORDER. PT IS PLEASANT, INTERACTIVE, ATTEMPTING TO MAKE JOKES WITH STAFF. PT ABLE TO COMMUNICATE WANTS AND NEEDS TO STAFF. PT DOES DISCUSS SOME CONCERN THAT SHE MAY NOT BE ABLE TO GET SURGERY ON HER KNEES D/T DIFFICULTIES WITH INSURANCE. PT STATES THAT THIS MAKES HER ANGRY. DENIES SI AT THIS TIME. PT PROVIDED WITH EMOTIONAL SUPPORT. Q 15 MIN MONITORING PER POLICY.
--- NOTE | 2019-08-16 | NUR ---
PRN NORCO EFFECTIVE AT THIS TIME. PT RESTING QUIETLY IN BED. NO OVERT DISTRESS.
--- NOTE | 2019-08-16 02:29 | NUR ---
The patient has no complaints and is resting comfortably. MECCA GAUTAM
--- NOTE | 2019-08-16 05:59 | NUR ---
PATIENT SLEPT APPROX 6 HOURS THROUGHOUT THE NIGHT, UNINTERRUPTED. NO DISTRESS NOTED.
[2019-08-16 07:41] VITALS: BP 113/59
--- NOTE | 2019-08-16 08:30 | NUR ---
Treatment Plan meeting was held this A.M. with CARLOS Gonzalez, RN, AT, LJ-S and Lan Administrator. Plan for discharge Thursday with return to [facility].
--- NOTE | 2019-08-16 11:35 | NUR ---
HILARY TOPETE FLOW MANAGER ON UNIT TO ASSESS PT, UPDATE PROVIDED.
--- NOTE | 2019-08-16 12:28 | NUR ---
Met with pt this AM who was tearful. Pt apologized stating that she felt she was short with this brief writer earlier this AM. Pt then stated that she is being told that she isn't allowed to eat what she wants. Asked pt to explain, pt stated that she had been told that she is eating too little and must eat more. Questioned pt further about this and then confirmed to pt that pt has the right to refuse extra food. Pt was satisfied with this. During treatment team Lisa Nj NET DEVELOPER CONTRACT confirmed that pt had stated the same to her this AM.
--- NOTE | 2019-08-16 13:43 | NUR ---
PRN [place] one tab PO and blue gel external analgesic applied per pt request for c/o neck and back pain rated level 7/10. Will monitor for effectiveness.
--- NOTE | 2019-08-16 15:46 | NUR ---
GROUP B PT ATTENDED GROUP THERAPY AND PARTICIPATED IN ALL ACITIVITIES. PT WAS TALKATIVE AND HAPPY AND EXPRESSED NO SUICIDAL IDEATIONS WHILE IN GROUP.
--- NOTE | 2019-08-16 17:26 | NUR ---
P: PT IRRITABLE WITH STAFF AND PEERS. PT REFUSED AM PO MEDS. I: ENCOURAGE MED COMPLIANCE AND PROVIDE MED EDUCATION, PROVIDE EMOTIONAL SUPPORT AND 1:1 FOR PT TO VOICE FEELINGS. R: PT ALERT TO PERSON, PLACE, TIME AND SITUATION. THIS NURSE WAS PASSING MEDS TO OTHER PTS WHEN THIS PT APPROACHED NURSE AND STATED "DO YOU STILL HAVE MY MEDS? ILL TAKE THEM NOW." PT CONTINUES TO BE IRRITABLE WITH STAFF AND PEERS AT TIMES. NO HALLUCINATIONS OR DELUSIONS NOTED. PT DENIES ANY SUICIDAL THOUGHTS AT THIS TIME. PT UP TO A WHEELCHAIR, REQUIRES 1 STAFF ASSIST FOR TRANSFER AND CARE. P: MONITOR PT BEHAVIORS ON Q15 MIN SAFETY CHECKS, ENCOURAGE MED COMPLIANCE AND PROVIDE MED EDUCATION, PROVIDE EMOTIONAL SUPPORT AND 1:1 FOR PT TO VOICE FEELINGS, ENCOURAGE GROUP PARTICIPATION AND SOCIALZATION.
[2019-08-16 20:00] VITALS: BP 117/58
--- NOTE | 2019-08-16 22:00 | NUR ---
PLEASENT AND INTERACTIVE. SNACK PROVIDED BY STAFF. HAD A LONG TALK WITH HER SISTER ON PHONE. STATES FEELING BETTER AND GLAD MEDICATIONS ARE BEING ADJUSTED AND SHE IS TAKING LESS THAN WHEN SHE CAME IN. GAIT STEADY WITH WC. MONITOR FOR CHANGES IN MOOD/BEHAVIOR
--- NOTE | 2019-08-17 06:05 | NUR ---
SLEPT APPROX 7 HOURS UNINTERUPTED
--- NOTE | 2019-08-17 06:09 | NUR ---
SLEPT APPROX 7 HOURS UNINTERUPTED
--- NOTE | 2019-08-17 07:43 | NUR ---
Patient eating breakfast in dining room with peers. Feeding self. Respirations easy and regular. Vital signs stable. No overt distress. MARY TORRES PMFERNANDO-SANTI on unit to see pt at this time, update given.
[2019-08-17 07:44] VITALS: BP 107/63
--- NOTE | 2019-08-17 08:30 | NUR ---
Treatment Plan meeting was held with Dr. Whitfield via telephone, SENIOR PUBLICATIONS SPECIALIST, RN, AT, FOOD AND BEVERAGE CASHIER-S and Railway Equipment Operator in attendance. Plan for discharge Thursday. Pt. will return to [facility].
--- NOTE | 2019-08-17 08:34 | NUR ---
SPOKE WITH DR BRADY AT [phone], RE: PT LISINOPRIL AND LASIX DUE TO PT BP 107/63. NO FURTHER ORDERS AT THIS TIME.
--- NOTE | 2019-08-17 09:45 | NUR ---
Occupational therapy order received and OT evaluation completed in full on the [facility]. Patient is evaluation only this date secondary to being at her baseline functioning for ADLs, transfers, and mobility with the WW and W/c. No further OT indicated at this time. Thank you for the referral. Kirstin Minor, OTR/L
--- NOTE | 2019-08-17 09:45 | NUR ---
PHYSICAL THERAPY Physical Therapy evaluation completed on [facility] with full evaluation to follow. Low complexity PT evaluation per chart review and evaluation, [address]. Evaluation only this date. Patient Modified independent with w/c for gait, transfers, propelling. No PT needs at this time. Continue functional mobility throughout U. Recommmend return to LTC facility upon discharge. Thank you for this referral. Drea Ribeiro,PT,DPT
--- NOTE | 2019-08-17 11:36 | NUR ---
AM GROUP PT ATTENDED MORNING GROUP THERAPY AND PARTICIPATED IN THE EXERCISES AND BALL TOSS. PT WAS PLEASANT AND TALKATIVE. PT EXPRESSED NO SUICIDAL IDEATIONS WHILE IN GROUP.
--- NOTE | 2019-08-17 13:36 | NUR ---
GROUP A/COPING SKILLS PT ATTENDED GROUP THERAPY AND PARTICIPATED FULLY IN THE GROUP CONVERSATION. PT WAS ON TOPIC AND EXPRESSED NO SUICIDAL IDEATIONS WHILE IN GROUP.
--- NOTE | 2019-08-17 15:00 | NUR ---
Clinical Updates faxed to [facility] Attn: Leigha [phone].
--- NOTE | 2019-08-17 15:49 | NUR ---
GROUP B/CAST[place]O PT ATTENDED GROUP AND PARTICIPATED IN ALL ACITIVITES. PT WAS TALKATIVE BUT ON TASK. PT WAS PLEASANT AND EXPRESSED NO SUICIDAL IDEATIONS WHILE IN GROUP
--- NOTE | 2019-08-17 16:48 | NUR ---
P: PT IRRITABLE AND ARGUEMENTATIVE WITH STAFF AND PEERS. PT PO INTAKE POOR, CHOOSING TO EAT A PIECE OF CHEESE AND DRINK ENSURE FOR LUNCH. I: PROVIDE EMOTIONAL SUPPORT AND 1:1 FOR PT TO VOICE FEELINGS, ENCOURAGE MED COMPLIANCE, CONSULT NUTRITION R: PT ALERT TO PERSON, PLACE, TIME AND SITUATION. PT MED COMPLIANT WITHOUT DIFFICULTY, MED EDUCATION PROVIDED. NUTRITION CONSULTED AND WILL FOLLOW UP WITH PT TOMORROW. PT CHOSE TO EAT 2 BOWLS OF CREAM OF WHEAT FOR DINNER. PT REMAINS IRRITABLE AND ARGUEMENTATIVE WITH STAFF AT TIMES. NO HALLUCINATIONS OR DELUSIONS NOTED. PT DENIES ANY SUICIDAL THOUGHTS OR BEHAVIORS AT THIS TIME. PT UP TO A WHEELCHAIR, REQUIRES 1 STAFF ASSIST FOR TRANSFERS AND CARE. PT CONTINENT OF BOWEL AND BLADDER. P: MONITOR PT BEHAVIORS ON Q15 MIN SAFETY CHECKS, ENCOURAGE MED COMPLIANCE AND PROVIDE MED EDUCATION, ENCOURAGE PO INTAKE, PROVIDE EMOTIONAL SUPPORT AND 1:1 FOR PT TO VOICE FEELINGS, FOLLOW WITH WITH NUTRITION TOMORROW.
--- NOTE | 2019-08-17 17:26 | NUR ---
PRN [place] one tab PO given at this time per pt request for c/o bilateral knee pain rated level 7/10 on pain scale. Blue gel applied to bilateral knees as well per pt request. Will monitor for effectiveness.
[2019-08-17 20:00] VITALS: BP 148/74
--- NOTE | 2019-08-17 20:49 | NUR ---
PLEASENT AND INTERACTIVE WITH PEERS AND STAFF. CLIENT STATES SHE IS SO HAPPY WITH HOW MUCH DR LEBRON HAS CHANGED HER MEDICATIONS AND CUT DOWN ON THE. STATES SHE IS FEELING BETTER AT THIS TIME. NO TALK OF SUICIDE TONIGHT. CONTRACTS FOR SAFETY
--- NOTE | 2019-08-18 05:28 | NUR ---
24 HR chart check completed.
--- NOTE | 2019-08-18 06:32 | NUR ---
HUMA MILLER [id number] Please refer to the physician's history and physical for past medical history, comorbid conditions, and allergies. Diagnosis: MAJOR DEPRESSION RECURRENT SEVERE Fabian Score: 19,AT RISK WOUND DESCRIPTIONS: Wound Number: 1 Left abdominal fold no open areas noted at time of assessment. No drainage noted at time of assessment. Wound Number2: Right arm pink and blanchable at time of assessmetn. No open areas noted at time of assessment. No drainage noted at time of assessment. Surface the patient is resting on: Proform SKIN PREVENTION RECOMMENDATION: 1. Pressure redistribution support surface as appropriate 2. Elevate heels 3. Remove boots/TEDS every shift and reapply 4. Head of bed 30 degrees as tolerated 5. Assess nutrition and hydration 6. Manage moisture 7. Avoid the use of containment devices while in bed 8. Use absorptive products on surfaces limit layers of linens on bed 9. Turn and reposition every 1-2 hours in bed and every 1 hour in chair as tolerated 10. Weight shifts every 15 minutes while up in chair 11. Offloading with pillows or device to keep heels elevated off bed 12. Monitor skin at least every shift 13. Inspect under medical devices twice a day WOUND TREATMENT RECOMMENDATIONS: Nystain will not need to be continued since area is intact at this time
[2019-08-18 07:50] VITALS: BP 119/67
--- NOTE | 2019-08-18 09:00 | NUR ---
Treatment Plan meeting was held this a.m. via telephone with Dr. Whitfield, RN, AT, HVAC FIELD SERVICE TECHNICIAN-S and Rope Cutter. Plan for discharge Thursday with return to [facility].
--- NOTE | 2019-08-18 11:32 | NUR ---
Nutritional Support Services Note: Discussing with pt her weight loss diet and the need to lose weight for possible knee surgert. Pt states she sees a Dr. in [facility] and a Stone Rigger there also. They had put her a diet and she follows it at the skilled nursing she is at. She does drink two Ensures a day. She states she will follow this diet only. Attempted to help patient eat more food and healthier foods for weight loss. Pt is not interested in changing from weight she is doing now because she states it works for her. Will follow if needed, but patient is not interested in any other weight loss plans. Magaly Jensen Rdn Ld
--- NOTE | 2019-08-18 11:42 | NUR ---
AM GROUP/RELAXATION PT ATTENDED MORNING GROUP THERAPY AND PARTICIPATED IN THE GROUP DISCUSSION ON NEGATIVE ENERGY AND HOW TO RELAX WHEN FEELING STRESSED. PT EXPRESSED NO SUICIDIAL IDEATIONS WHILE IN GROUP AND IS EXCITED AT THE PROSPECT OF BEING DISCHARGED ON THURSDAY.
[2019-08-18] MEDS ORDERED: HYDROCODONE-AC1 EAC1 PO (11:48)
--- NOTE | 2019-08-18 11:50 | NUR ---
SPOKE WITH DR BRADY AND ADVISED THAT PT NORCO NEEDS RENEWED, PER DR HILL HE WILL TAKE CARE OF IT.
--- NOTE | 2019-08-18 13:28 | NUR ---
[facility] ATTENDED GROUP THERAPY UNTIL SHE WAS CALLED OUT BY DR. RIVERA.
--- NOTE | 2019-08-18 14:58 | NUR ---
Met with pt individually this AM. Pt spoke about her preferred diet and that she was looking forward to meeting with the shredding floor equipment operator. Pt spoke of her mood and that she feels that she is improving. Discussed this further. Pt shared experiences of [facility] at the [facility]. Pt was pleasant and smiling appropriately during conversation.
--- NOTE | 2019-08-18 15:39 | NUR ---
GROUP B PT ATTENDED AFTERNOON GROUP THERAPY AND PARTICIPATED IN ALL ACTIVITIES. PT WAS PLEASANT AND TALKATIVE. PT EXPRESSED NO SUICIDAL IDEATIONS WHILE IN GROUP
[2019-08-18 20:00] VITALS: BP 97/69
--- NOTE | 2019-08-18 22:15 | NUR ---
NORCO AND BLLUE GEL GIVEN FOR C/O 12/16 KNEE PAIN
--- NOTE | 2019-08-18 22:15 | NUR ---
NORCO AND BLLUE GEL GIVEN FOR C/O 12/16 KNEE PAIN
--- NOTE | 2019-08-19 00:23 | NUR ---
24 HR chart check completed.
[2019-08-19 08:00] VITALS: BP 102/67
--- NOTE | 2019-08-19 09:00 | NUR ---
Treatment Plan meeting held this a.m. with CARLOS Gonzalez, RN, AT, LJ-S and Learning And Development Specialist in attendance. Plan for discharge Thursday with return to [facility].
--- NOTE | 2019-08-19 10:25 | NUR ---
placement director alerted this RN that pt had reported to her that she "just had a seziure". This RN assessed pt, pt sitting calmly in dining room, states "I just had two seizures. They're just in my head, I just stare off and then I'm ok if I'm sitting down but if I was up walking I'd go down". Pt appears calm at this time, no distress noted. No seizure like activity noted upon assessment. Pt states she feels ok now, "just a little shakey". Pt denies having any hx of convulsions when having a seizure. 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 notified with new order for stat prolactin level. notified. Advised pt to ask for help before getting up. Pt agrees.
--- NOTE | 2019-08-19 10:57 | NUR ---
Met with pt individually this AM. Pt was pleasant and shared about her conversation with the online user experience strategist and with Dr Whitfield. Discussed pt's mood. Pt states that she is feeling better than a few days ago. Discussed this further. Pt was appropriate in conversation.
--- NOTE | 2019-08-19 11:39 | NUR ---
AM GROUP PT ATTENDED MORNING GROUP THERAPY AND PARTICIPATED IN ALL ACTIVITIES. PT WAS FOCUSED AND ON TASK. PT EXPRESSED NO SUICIDAL IDEATIONS WHILE IN GROUP.
--- NOTE | 2019-08-19 13:38 | NUR ---
GROUP A PT ATTENDED GROUP THERAPY AND PARTICIPATED IN ALL ACITIVITES. PT WAS TALKATIVE AND IN A GOOD MOOD. PT EXPRESSED NO SUICIAL IDEATIONS WHILE IN GROUP
--- NOTE | 2019-08-19 15:13 | NUR ---
PATIENT IS ALERT TO PERSON, PLACE, TIME AND SITUATION; ABLE TO VOICE NEEDS. MOOD IS STABLE, PLEASANT DEMEANOR. DENIES ANY HALLUCINATIONS, DELUSIONS OR HI/SI. PRN NORCO 5/325MG PO FOR COMPLAINTS OF RIGHT KNEE PAIN AND EFFECTIVE. 1 PERSON STANDBY ASSIST WITH ACTIVITIES OF DAILY LIVING, CONTINENT OF BOWEL AND BLADDER. SET UP FOR MEALS, INTAKE ARE FAIR. INTERACTIVE [facility] STAFF AND OTHER PATIENTS. PARTICIPATES IN GROUP SESSION. UP IN WHEELCHAIR AND SELF PROPELS WHEN NEEDED. MEDICATION COMPLIANT WITH EDUCATION PROVIDED. Q 15 MINUTE SAFETY CHECKS MAINTAINED. CONTINUE TO MONITOR MOOD AND VOICED SUICIDAL IDEATIONS. PROVIDE ONE ON ONE FOR EMOTIONAL SUPPORT AND CONTRACT FOR SAFETY NEEDED.
--- NOTE | 2019-08-19 15:23 | NUR ---
Clinical Updates faxed to [facility].
--- NOTE | 2019-08-19 15:34 | NUR ---
Shift chart check completed.
--- NOTE | 2019-08-19 15:43 | NUR ---
GROUP B / [place] PT ATTENDED GROUP THERAPY AND PARTICIPATED BY COLORING AND LISTENING TO MUSIC. PT EXPRESSED NO SUICIDAL IDEATIONS WHILE IN GROUP
[2019-08-19 20:00] VITALS: BP 113/62
--- NOTE | 2019-08-19 23:56 | NUR ---
P-ISOLATIVE I-REDIRECTION WITH 1:1 THERAPEUTIC INTERVENTIONS AND COMMUNICATION. EDUCATE AND ENCOURAGE MEDICATION COMPLIANCE R-MEDICATION COMPLIANT AT HS. PATIENT REFUSED NOURISHMENT BUT PROVIDED FLUIDS AT HS. PATIENT WITH LIMITED INTERACTION WITH PEERS IN DINING AREA. PATIENT CONTINUES ON 3L O2 VIA NASAL CANNULA. PATIENT INTERMITTENTLY USING BIPAP ON AT HS. PATIENT WITH NO HALLUCINATIONS OR DELUSIONS. PATIENT WITH NO HOMICIDAL IDEATIONS AND DENIES SUICIDAL IDEATIONS AT THIS TIME. P-CONTINUE TO ENCOURAGE MEDICATION COMPLIANCE, ENCOURAGE GROUP THERAPY WHILE AWAKE
--- NOTE | 2019-08-20 04:52 | NUR ---
PATIENT WITH 6 HOURS OF SLEEP THROUGHOUT SHIFT. Q 15 MINUTE CHECKS MAINTAINED. 24 HR chart check completed.
[2019-08-20 07:49] VITALS: BP 109/59
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
[2019-08-20 20:00] VITALS: BP 95/55
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
--- NOTE | 2019-08-21 06:27 | NUR ---
PATIENT SLEPT 3-4 HOURS OF INTERRUPTED SLEEP THROUGHOUT SHIFT. Q 15 MINUTE CHECKS MAINTAINED. 24 HR chart check completed.
[2019-08-21 08:08] VITALS: BP 117/63
[2019-08-21] MEDS ORDERED: REXULTI2 MG PO (08:35)
[2019-08-21] MEDS ORDERED: MIRTAZAPINE15 M1 PO (08:35)
--- NOTE | 2019-08-21 08:53 | NUR ---
PT CAME OUT OF THE BATHROOM STATED TO THIS NURSE "I JUST THREW UP MY BREAKFAST." NO C/O NAUSEA NOTED, VOMITING WAS NOT OBSERVED, ADVISED PT THAT WE WOULD CONTINUE TO MONITOR
--- NOTE | 2019-08-21 11:07 | NUR ---
DR SARAH AND DR RICHARDS ON UNIT TO ASSESS PT, UPDATE PROVIDED.
--- NOTE | 2019-08-21 13:09 | NUR ---
PT C/O INDIGESTION/UPSET STOMACH. PT MEDICATED WITH MAALOX PO PRN PER ORDERS. WILL CONTINUE TO MONITOR.
--- NOTE | 2019-08-21 14:20 | NUR ---
NO FURTHER C/O UPSET STOMACH OR INDIGESTION.
--- NOTE | 2019-08-21 16:36 | NUR ---
PT C/O LOWER BACK AND BILATERAL KNEE PAIN. PT GIVEN BLUE GEL AND NORCO PRN PER ORDERS. WILL CONTINUE TO MONITOR.
--- NOTE | 2019-08-21 17:46 | NUR ---
PT TOLD MHW THAT SHE WILL BE ON A 14 DAY ISOLATION AFTER RETURNING TO THE FACILITY AND THEN SHE WILL BE BACK BECAUSE SHE WILL GO STIR CRAZY SITTING IN HER ROOM WATCHING TV FOR 2 WEEKS. SHE ALSO STATED THAT SHE FOUGHT HER WAY TO GET HERE THIS TIME AND SHE WILL FIGHT HER WAY BACK. STAFF PROVIDED EMOTIONAL SUPPORT AND 1:1 FOR PT TO VOICE FEELINGS, ADVISED THAT THE ACTIVITIES DEPT AT HER FACILITY SHOULD BE ABLE TO PROVIDE HER WITH ACTIVITES THAT CAN BE COMPLETED WITHIN HER ROOM SUCH COLORING PAGES AND WORDSEARCH TO HELP PASS THE TIME.
[2019-08-21 20:00] VITALS: BP 115/62
--- NOTE | 2019-08-21 22:35 | NUR ---
P-ISOLATIVE I-REDIRECTION WITH 1:1 THERAPEUTIC INTERVENTIONS AND COMMUNICATION. EDUCATE AND ENCOURAGE MEDICATION COMPLIANCE R-MEDICATION COMPLIANT AT HS. PATIENT REFUSED NOURISHMENT BUT PROVIDED FLUIDS AT HS. PATIENT WITH LIMITED INTERACTION WITH PEERS IN DINING AREA. PATIENT CONTINUES ON 3L O2 VIA NASAL CANNULA. PATIENT INTERMITTENTLY USING BIPAP ON AT HS. PATIENT WITH LIMITED INTERACTION WITH PEERS IN DINING AREA. PATIENT WITH NO HALLUCINATIONS OR DELUSIONS. PATIENT WITH NO HOMICIDAL IDEATIONS AND DENIES SUICIDAL IDEATIONS AT THIS TIME. P-CONTINUE TO ENCOURAGE MEDICATION COMPLIANCE, ENCOURAGE GROUP THERAPY WHILE AWAKE
--- NOTE | 2019-08-22 05:19 | NUR ---
PATIENT SLEPT 7 HOURS OF UNINTERRUPTED SLEEP THROUGHOUT SHIFT. Q 15 MINUTE CHECKS MAINTAINED. 24 HR chart check completed.
[2019-08-22 07:39] VITALS: BP 110/69
--- NOTE | 2019-08-22 08:46 | NUR ---
ATTEMPTED TO CALL DR SARAH RE: PT DC NO ANSWER AT THIS TIME. WILL TRY AGAIN.
--- NOTE | 2019-08-22 08:53 | NUR ---
SPOKE WITH DR AGUIRRE AT [phone] RE: PT DC TODAY AND MEDICAL MEDS NEEDING COMPLETED.
--- NOTE | 2019-08-22 09:23 | NUR ---
Met with pt this AM. Pt states that she feels ready for discharge. Pt did state that she did not sleep well over the weekend due to other pts, but she is feeling more rested this morning. Informed pt that her discharge is being worked on and that a time for discharge is not yet known. Pt voiced understanding.
--- NOTE | 2019-08-22 09:26 | NUR ---
Pt. set to discharge today with return to [facility] in [facility]. Spoke with Hattie at the facility this a.m. and notified of planned discharge. Transportation arranged with [facility] to transport with brass pickler time 1:00 p.m. Spoke with Pt. Sister Ronna via telephone and notified of Discharge and Master Sheet Clerk time. Copy of Covid 19 Swab negative results faxed to [facility] Attn: Hattie.
--- NOTE | 2019-08-22 10:30 | NUR ---
Treatment Plan meeting was held this a.m. with Dr. Whitfield, CARLOS Gonzalez, RN, AT, TELEPHONE CLAIMS REPRESENTATIVE-S and Manager Ambulatory. Plan for discharge today. Pt. will return to [facility].
--- NOTE | 2019-08-22 11:12 | NUR ---
Patient is discharging to [facility] under LTC. Follow-up will be with Dr Whitfield, visiting psychiatrist. While at [facility], pt's mood improved. Pt no longer experienced suicidal ideations and self-reported improvement to her mood. Pt participated in programming. Pt was pleasant and cooperative with staff.
--- NOTE | 2019-08-22 11:22 | NUR ---
SPOKE WITH DR BRADY AT [phone] RE: PT MEDICAL MEDS NEEDING COMLPETED FOR DC.
--- NOTE | 2019-08-22 11:33 | NUR ---
AM GROUP/EXERCISE AND REMINISCING PT ATTENDED GROUP THERAPY AND PARTICIPATED IN ALL ACITIVITIES. PT WAS EXCITED AT THE PROSPECT OF BEING DISCHARGED TODAY.
--- NOTE | 2019-08-22 12:06 | NUR ---
PT ALERT TO PERSON, PLACE, TIME AND SITUATION. PT MED COMPLIANT WITHOUT DIFFICUTLY,MED EDUCATION PROVIDED. PT CALM, MOOD IS STABLE. PT DENIES ANY SUICIDAL THOUGHTS. NO HALLUCINATIONS OR DELUSIONS NOTED. PT UP TO A WHEELCAHIR, WILL TRANSFER WITH STANDBY ASSIST. PT CONTINENT OF BOWEL AND BLADDER. SKIN INTACT, NO OPEN AREAS NOTED. PLAN IS TO PREPARE PT FOR DISCHARGE AND MONITOR PT BEHAVIORS ON Q15 MIN SAFETY CHECKS.
--- NOTE | 2019-08-22 13:24 | NUR ---
PT DISCHARGED TO [facility]IA [facility]. PT BELONGINGS AND DC PACKET SENT WITH PT.
== END 2019-08-22 13:31 | DRG 751 ==
LOC: 3N 15:26
PROVIDERS: ADMIT Psychiatry & Neurology Psychiatry
DX: F33.3 Major depressive disorder, recurrent, severe with psychotic symptoms (principal); F34.1 Dysthymic disorder; R45.851 Suicidal ideations; E66.09 Other obesity due to excess calories; I50.9 Heart failure, unspecified; K21.9 Gastro-esophageal reflux disease without esophagitis; J44.9 Chronic obstructive pulmonary disease, unspecified; E03.9 Hypothyroidism, unspecified; G89.29 Other chronic pain; M54.9 Dorsalgia, unspecified; G62.9 Polyneuropathy, unspecified; F60.3 Borderline personality disorder; E78.5 Hyperlipidemia, unspecified; I11.0 Hypertensive heart disease with heart failure; I25.10 Atherosclerotic heart disease of native coronary artery without angina pectoris; E55.9 Vitamin D deficiency, unspecified; Z99.81 Dependence on supplemental oxygen; Z87.442 Personal history of urinary calculi; Z90.49 Acquired absence of other specified parts of digestive tract; Z87.891 Personal history of nicotine dependence; Z79.899 Other long term (current) drug therapy; Z79.82 Long term (current) use of aspirin; Z03.818 Encounter for observation for suspected exposure to other biological agents ruled out; Z68.43 Body mass index [BMI] 50.0-59.9, adult

== ENCOUNTER 2020-05-28 16:12 | Inpatient (IN) | payer MEDICAID ==
[~2020-05-28] VITALS: Ht 165.1 cm; Wt 115.4 kg
[~2020-05-28 16:12] MED LIST changes: +BENZONATATE100 M1 PO; +BIPAP; +GAVILAX17 GM PO; +HORIZANT300 M1 PO; +MELATONIN 1 MG1 EACH PO; +MIRTAZAPINE15 M1 PO; +PROCTOZONE-HC30 GM R; +REXULTI2 MG PO; +TRAMADOL HCL50 MG PO; +VESICARE10 MG PO; +VISTARIL25 MG PO; +VITAMIN D3125 MC1 PO
[2020-05-28] MEDS ORDERED: TESSALON PERLE100 MG PO (16:23)
[2020-05-28] MEDS ORDERED: ALLEGRA ALLERG180 M2 PO (16:38)
[2020-05-28] MEDS ORDERED: LAC-HYDRIN FIV226 GM T (16:39)
[2020-05-28] MEDS ORDERED: ARTIFICIAL TEAR1511 OP (16:39)
[2020-05-28] MEDS ORDERED: ASPERCREME LIDO73 ML T (16:40)
[2020-05-28] MEDS ORDERED: BENADRYL ALLERG25 M5 PO (16:43)
[2020-05-28] MEDS ORDERED: BENEFIBER1 EACH PO (16:44)
[2020-05-28] MEDS ORDERED: BIOFREEZE118 ML T (16:45)
[2020-05-28] MEDS ORDERED: CHLORASEPTIC S1 EACH PO (16:46)
[2020-05-28] MEDS ORDERED: FLOVENT HFA12 GM INH (16:47)
[2020-05-28] MEDS ORDERED: MYVITALIFE1 EACH PO (16:49)
[2020-05-28] MEDS ORDERED: HYDROCODONE-AC1 EAC1 PO (16:50)
[2020-05-28] MEDS ORDERED: OXYBUTYNIN ER15 MG PO (16:51)
[2020-05-28] MEDS ORDERED: PROAIR HFA8.5 GM INH (16:52)
[2020-05-28] MEDS ORDERED: PROCTOSOL-HC28.35 GM R (16:53)
[2020-05-28] MEDS ORDERED: KETOCONAZOLE 1120 ML T ×2 (16:58→16:59)
[2020-05-28] MEDS ORDERED: LEVALBUTEROL INH (17:00)
[2020-05-28] MEDS ORDERED: MILK OF MA400 MG/51 PO (17:02)
[2020-05-28] MEDS ORDERED: LOPRESSOR25 MG PO (17:02)
[2020-05-28] MEDS ORDERED: MOBIC15 MG PO (17:05)
[2020-05-28] MEDS ORDERED: SPIRIVA RESPIMAT4 GM INH (17:08)
[2020-05-28] MEDS ORDERED: TUSSIN COU15 MG/5 ML PO (17:10)
[2020-05-28] MEDS ORDERED: VISINE DRY EYE15 ML OP (17:12)
[2020-05-28] MEDS ORDERED: REMERON30 M1 PO (17:14)
[2020-05-28] MEDS ORDERED: REXULTI4 MG PO (17:14)
[2020-05-28] MEDS ORDERED: VISTARIL50 MG PO (17:15)
[2020-05-28 22:05] VITALS: BP 101/57
[2020-05-28] MEDS ORDERED: OXYGEN NAS (22:15)
[2020-05-29 06:20] LABS: BASO # 0.1 10*3/uL (0.0-0.1); BASO % 1.4 % (0.0-1.0); EOS # 0.3 10*3/uL (0.0-0.4); EOS % 5.5 % (1.0-4.0); HEMATOCRIT 40.8 % (37.0-47.0); LYMPH % 34.7 % (27.0-41.0); MEAN CELL VOLUME 91.1 fl (81.0-99.0); MEAN CORPUSCULAR HGB 28.1 pg (27.0-31.0); MEAN CORPUSCULAR HGB CONC 30.9 g/dl (33.0-37.0); MEAN PLATELET VOLUME 10.6 fl (9.6-12.3); MONO # 0.7 10*3/uL (0.1-1.0); MONO % 11.3 % (3.0-9.0); NEUT # 2.7 10*3/uL (2.3-7.9); NEUT % 46.8 % (47.0-73.0); PLATELET COUNT AUTOMATED 205 10*3/uL (130-400); RED BLOOD COUNT 4.48 10*6/uL (4.10-5.10); RED CELL DISTRI WIDTH 14.6 % (0-14.5); WHITE BLOOD COUNT 5.9 10*3/uL (4.8-10.8)
[2020-05-29 06:35] LABS: ALBUMIN 2.9 gm/dl (3.1-4.5); ALKALINE PHOSPHATASE 78 U/L (45-117); BUN 11 mg/dl (7-24); CHLORIDE 111 mmol/L (98-107); CHOLESTEROL 167 mg/dL (<200); CREATININE 0.78 mg/dL (0.55-1.02); HDL CHOLESTEROL 59 mg/dl (40-60); LDL CHOLESTEROL 85 mg/dL (9-159); POTASSIUM 4.9 mmol/L (3.5-5.1); SGOT/AST 11 IU/L (3-35); SGPT/ALT 17 U/L (12-78); SODIUM 145 mmol/L (136-145); TOTAL PROTEIN 6.4 gm/dL (6.4-8.2); TRIGLYCERIDES 115 mg/dl (<150); VLDL CHOLESTEROL 23 mg/dL (6-40)
[2020-05-29 06:42] LABS: THYROID STIM HORMONE (HS) 0.238 uIU/ml (0.358-4.75)
[2020-05-29 07:35] VITALS: BP 102/66
[2020-05-29 08:36] LABS: VITAMIN D, 25-HYDROXY 40.5 ng/mL (30-100)
[2020-05-29 16:31] LABS: BILIRUBIN Negative (Negative); BLOOD Negative (Negative); CLARITY Clear (Clear); COLOR Yellow (Yellow); GLUCOSE Negative (Negative); KETONE Negative (Negative); LEUKO ESTERASE 1+ (Negative); NITRITE Negative (Negative); PH 7.5 (4.5-8.0); UROBILINOGEN 0.2 E.U./dl (0.0-1.0)
[2020-05-29 16:38] LABS: BACTERIA 1+; EPITHELIAL CELLS 0-2; RBC 0-2 rbc/hpf (0-2)
[2020-05-29 20:00] VITALS: BP 100/70; BP 158/79
[2020-05-29 20:43] VITALS: BP 158/79
[2020-05-30 07:45] VITALS: BP 100/57
[2020-05-30 08:59] VITALS: BP 88/60
[2020-05-30 18:55] VITALS: BP 82/56
[2020-05-30 20:18] VITALS: BP 109/66
[2020-05-31 06:14] LABS: BASO # 0.1 10*3/uL (0.0-0.1); BASO % 1.4 % (0.0-1.0); EOS # 0.3 10*3/uL (0.0-0.4); EOS % 6.7 % (1.0-4.0); HEMATOCRIT 39.9 % (37.0-47.0); LYMPH # 1.9 10*3/uL (1.3-4.4); LYMPH % 37.9 % (27.0-41.0); MEAN CELL VOLUME 90.9 fl (81.0-99.0); MEAN CORPUSCULAR HGB 28.2 pg (27.0-31.0); MEAN CORPUSCULAR HGB CONC 31.1 g/dl (33.0-37.0); MEAN PLATELET VOLUME 10.7 fl (9.6-12.3); MONO # 0.5 10*3/uL (0.1-1.0); MONO % 9.6 % (3.0-9.0); NEUT # 2.2 10*3/uL (2.3-7.9); PLATELET COUNT AUTOMATED 186 10*3/uL (130-400); RED BLOOD COUNT 4.39 10*6/uL (4.10-5.10); RED CELL DISTRI WIDTH 14.3 % (0-14.5); WHITE BLOOD COUNT 5.1 10*3/uL (4.8-10.8)
[2020-05-31 06:26] LABS: BUN 15 mg/dl (7-24); CHLORIDE 109 mmol/L (98-107); CREATININE 0.64 mg/dL (0.55-1.02); POTASSIUM 4.4 mmol/L (3.5-5.1); SODIUM 142 mmol/L (136-145)
[2020-05-31 07:21] VITALS: BP 110/60
[2020-05-31 19:08] VITALS: BP 93/58
[2020-06-01 07:07] VITALS: BP 108/63
[2020-06-01 19:06] VITALS: BP 90/52
[2020-06-02 08:51] VITALS: BP 100/52
[2020-06-02 20:00] VITALS: BP 102/49
[2020-06-03 08:00] VITALS: BP 92/51; BP 92/54
[2020-06-03 20:00] VITALS: BP 90/45
[2020-06-04 07:44] VITALS: BP 109/57
[2020-06-04 20:00] VITALS: BP 109/71
[2020-06-05 07:25] VITALS: BP 102/52
[2020-06-05 20:00] VITALS: BP 108/58
[2020-06-06 01:09] VITALS: BP 100/62
[2020-06-06 07:42] VITALS: BP 136/77
[2020-06-06 20:00] VITALS: BP 102/58
[2020-06-07 07:43] VITALS: BP 100/64
[2020-06-07] MEDS ORDERED: REXULTI4 MG PO (10:14)
[2020-06-07] MEDS ORDERED: HYDROXYZINE HCL25 MG PO (10:14)
[2020-06-07] MEDS ORDERED: QUETIAPINE FUMA50 M1 PO (10:14)
[2020-06-07] MEDS ORDERED: MIRTAZAPINE45 MG PO (10:14)
== END 2020-06-07 12:09 | DRG 751 ==
LOC: 3N 16:12
PROVIDERS: Psychiatry & Neurology Psychiatry; Student in an Organized Health Care Education/Training Program; ADMIT Psychiatry & Neurology Psychiatry; ATTEND Psychiatry & Neurology Psychiatry
DX: F33.2 Major depressive disorder, recurrent severe without psychotic features (principal); R45.851 Suicidal ideations; J44.9 Chronic obstructive pulmonary disease, unspecified; K21.9 Gastro-esophageal reflux disease without esophagitis; N20.0 Calculus of kidney; I25.10 Atherosclerotic heart disease of native coronary artery without angina pectoris; E66.01 Morbid (severe) obesity due to excess calories; G89.29 Other chronic pain; E78.5 Hyperlipidemia, unspecified; E03.9 Hypothyroidism, unspecified; I11.0 Hypertensive heart disease with heart failure; I50.22 Chronic systolic (congestive) heart failure; K59.00 Constipation, unspecified; F41.9 Anxiety disorder, unspecified; Z87.442 Personal history of urinary calculi; Z90.49 Acquired absence of other specified parts of digestive tract; Z79.899 Other long term (current) drug therapy; Z20.822 Contact with and (suspected) exposure to COVID-19; Z68.41 Body mass index [BMI] 40.0-44.9, adult; E44.0 Moderate protein-calorie malnutrition